=== PATIENT | male | born 1960 | race Caucasian/White ===

== ENCOUNTER 2017-04-14 12:57 | Emergency (ER) | payer BC ==
[2017-04-14 13:08] VITALS: BP 148/100
--- NOTE | 2017-04-14 14:27 | EDM.PDOC ---
ED HPI GENERAL MEDICAL PROBLEM - General Chief Complaint: Respiratory Problem Stated Complaint: TROUBLE BREATHING/ABDOMINAL PAIN Time Seen by Provider: 04/14/17 13:39 Source of Information: Reports: Patient, RN Notes Reviewed History Limitations: Reports: No Limitations - History of Present Illness INITIAL COMMENTS - FREE TEXT/NARRATIVE: 56-year-old male comes into the ER today complaining of trouble breathing and abdominal pain for the past 3 days. He states that he feels there is a pressure in his sinuses that "codey" his breathing. He does not have copious nasal rhinitis. NOt Much of any postnasal drip. He states the abdominal pain makes him feel "full" but admits he is able to eat and have normal BMs this morning. He denies any change in his diet. Patient states that the sinus pressure is also causing a headache but he denies any fever, chills, sick contacts, allergies, congestion, or cough. In regards to his abdominal pain he denies any nausea, vomiting, constipation, chest pain, but admits to diarrhea for the past 3 days and is unable to pass gas at this time. He denies any blood in his stools or urine. He states that he has only taken ibuprofen which has not alleviated the symptoms. He states that the ear is quite dry at his residence. 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 Liver he states that shop is ventilated and does not have concern for carbon monoxide exposure. Duration: Constant Location: Reports: Head (Headache), Abdomen, Other (Sinus) Quality: Reports: Pressure (Sinus) - Related Data Allergies Allergy/AdvReac Type Severity Reaction Status Date / Time No Known Allergies Allergy Verified 04/14/17 13:07 Home Meds: Home Meds Aspirin 81 mg PO DAILY 04/14/17 [History] Fish Oil/[place]-3 Fatty Acids [Fish Oil 1,000 MG] 1 each PO DAILY 04/14/17 [ History] Flaxseed Oil [Flaxseed] 1,000 mg PO DAILY 04/14/17 [History] Glimepiride [Glimepiride] 1 mg PO DAILY 04/14/17 [History] Losartan/Hydrochlorothiazide [Losartan-HCTZ 100-25 MG] 1 tab PO DAILY 04/14/17 [ History] Omeprazole 20 mg PO DAILY 04/14/17 [History] Pioglitazone HCl [Pioglitazone HCl] 45 mg PO DAILY 04/14/17 [History] Tamsulosin HCl [Tamsulosin HCl] 0.4 mg PO DAILY 04/14/17 [History] Ubidecarenone [Co Q-10] 1 cap PO DAILY 04/14/17 [History] Past Medical History Cardiovascular History: Reports: Hypertension Social & Family History - Tobacco Use Smoking Status *Q: Never Smoker Second Hand Smoke Exposure: No - Caffeine Use Caffeine Use: Reports: Coffee - Alcohol Use Days Per Week of Alcohol Use: 1 Number of Drinks Per Day: 4 Total Drinks Per Week: 4 - Recreational Drug Use Recreational Drug Use: No ED ROS GENERAL - Review of Systems Review Of Systems: See Below Constitutional: Reports: No Symptoms. Denies: Fever, Chills, Decreased Appetite HEENT: Reports: Sinus Problem (Feels some pressure of his nose and sinuses as though there is "blockage"). Denies: Throat Pain, Throat Swelling Respiratory: Reports: Shortness of Breath, Other (Difficult breathing through nose). Denies: Wheezing, Pleuritic Chest Pain, Cough, Sputum Cardiovascular: Reports: No Symptoms Endocrine: Reports: No Symptoms GI/Abdominal: Reports: Diarrhea (Comes and goes), Other (Feels "full", uncomfortable feeling in abdomen). Denies: Black Stool, Bloody Stool, Constipation, Decreased Appetite, Distension, Flatus, Nausea, Vomiting : Reports: No Symptoms. Denies: Dysuria, Hematuria, Pain Musculoskeletal: Reports: No Symptoms Skin: Reports: No Symptoms Neurological: Reports: Headache (Frontal) Psychiatric: Reports: No Symptoms Hematologic/Lymphatic: Reports: No Symptoms Immunologic: Reports: No Symptoms ED EXAM, GENERAL - Physical Exam Exam: See Below Exam Limited By: No Limitations General Appearance: Alert, WD/WN, Mild Distress Eye Exam: Bilateral Eye: Normal Inspection, PERRL Ears: Normal External Exam Nose: Normal Inspection, Normal Mucosa, No Blood. No: Nasal Tenderness, Nasal Deformity, Nasal Swelling, Nasal Drainage, Clear Rhinorrhea Throat/Mouth: Normal Inspection, Normal Lips, Normal Teeth, Normal Gums, Normal Oropharynx. No: Dysphagia, Inflammation Head: Atraumatic, Normocephalic. No: Sinus Tenderness Neck: Normal Inspection, Supple, Non-Tender, Full Range of Motion Respiratory/Chest: No Respiratory Distress, Lungs Clear, Normal Breath Sounds, Chest Non-Tender. No: Crackles, Rales, Rhonchi, Wheezing Cardiovascular: Normal Peripheral Pulses, Regular Rate, Rhythm, Tachycardia. No : No Murmur GI/Abdominal: Normal Bowel Sounds, Soft, Non-Tender, No Distention, No Mass. No : Distended, Guarding, Rebound Back Exam: Normal Inspection, Full Range of Motion Neurological: Alert, Oriented Psychiatric: Normal Affect, Normal Mood Skin Exam: Warm, Dry, Intact, Normal Color Lymphatic: No Adenopathy Course - Vital Signs Last Recorded V/S: Last Vital Signs Temp 96.8 F 04/14/17 13:05 Pulse 100 04/14/17 13:05 Resp 16 04/14/17 13:05 BP 148/100 H 04/14/17 13:05 Pulse Ox 95 04/14/17 13:05 Departure - Departure Time of Disposition: 14:24 Disposition: Home, Self-Care 01 Condition: Fair Clinical Impression: Viral syndrome - Discharge Information Instructions: Viral Respiratory Infection, [id number] Referrals: Kenneth Crews MD [Primary Care Provider] - Forms: ED Department Discharge Additional Instructions: Clear liquids and careful bland diet as tolerated, start probiotic 2-3 times daily to help get more of the good bacteria into your intestine and colon. Vaporizer or steam as needed, symptoms should gradually get better over the next few days, decongestant such as Sudafed 2-3 times daily as needed. Follow up clinic if symptoms worsening in any way return to ED as needed
== END 2017-04-14 14:40 | disposition home or self-care (01) ==
LOC: JD.ED 12:57
DX: B34.9 Viral infection, unspecified (principal); I10 Essential (primary) hypertension; Z79.899 Other long term (current) drug therapy; Z79.82 Long term (current) use of aspirin
CPT/HCPCS: 99282; 99284

== ENCOUNTER 2018-03-11 08:38 | Emergency (ER) | payer BC ==
[2018-03-11] MEDS ORDERED: Sodium Chloride 0.9% 10 ML Syringe FLUSH PRN ×2 (08:55→08:59)
[2018-03-11] MEDS ORDERED: HYDROmorphone 1 MG/ML Syringe IVPUSH ONE ×2 (08:56→09:51)
[2018-03-11] MEDS ORDERED: Iopamidol 612 MG/ML 100 ML Bottle IVPUSH ONE (08:59)
[2018-03-11] MEDS ORDERED: Sodium Chloride 0.9% 1,000 ML IV SCH (09:00)
[2018-03-11 10:08] VITALS: BP 126/80
--- NOTE | 2018-03-11 10:14 | CT ---
CT chest Technique: Multiple axial sections were obtained from above the lung apices inferiorly through the lung bases. Intravenous contrast was utilized. Comparison: No prior chest imaging. Findings: No pericardial thickening is seen. Mild coronary artery calcification is noted. Mediastinum and hilar regions show no adenopathy or mass. Lungs are clear. No acute parenchymal change is seen. No pleural effusions are noted. Incidental note of extrapleural fat posteriorly within the left lung base. Bone window settings were reviewed. Findings suspicious for nondisplaced fracture is noted on the sagittal images within the anterior left 10th rib. No additional rib fracture is appreciated. Mild degenerative spurring is scattered throughout the thoracic spine. Vertebral body heights are maintained. Sagittal images of the sternum appear to be intact. Impression: 1. Probable nondisplaced anterior rib fracture involving the 10th left rib. 2. No other acute abnormality is appreciated on CT study of the chest. Diagnostic code #3 CT abdomen and pelvis Technique: Multiple axial sections were obtained from above the dome of the diaphragm inferiorly through the pubic symphysis. Intravenous contrast was utilized. No oral contrast was given. Delayed images were obtained through the bladder. Findings: Liver shows no focal parenchymal abnormality. Gallbladder contains no calcified gallstones. Spleen appears within normal limits. Adrenal glands show no nodule. Kidneys show symmetric contrast enhancement without hydronephrosis or mass. Pancreas is within normal limits. Aorta shows no aneurysm. No retroperitoneal adenopathy or mesenteric abnormalities are seen. Appendix is seen which is normal. No pelvic mass or adenopathy is seen. No free fluid or inflammatory change is seen. Incidental sigmoid and descending colon diverticuli are seen. Delayed images show contrast within the distal ureters and bladder. Bone window settings were reviewed which show minimal scattered degenerative change within the spine. No acute osseous abnormality is seen. Impression: 1. Incidental findings. Nothing acute is seen on CT study of the abdomen and pelvis. Diagnostic code #2
--- NOTE | 2018-03-11 10:43 | EDM.PDOC ---
ED HPI GENERAL MEDICAL PROBLEM - General Chief Complaint: General Stated Complaint: FELL ON ICE RIB INJURY Time Seen by Provider: 03/11/18 08:45 Source of Information: Reports: Patient History Limitations: Reports: No Limitations - History of Present Illness INITIAL COMMENTS - FREE TEXT/NARRATIVE: The patient presents with left, lateral, lower chest pain and left upper abdominal pain. The patient was out ice fishing on Friday and his son slipped and fell and took out the patient's legs and fell on his left side on top of his son's legs. He had pain but he was doing okay for a couple days. Last night he moved in bed and felt more pain. He has no shortness of breath, fever, chills or cough. When he moves or takes a deep breath the pain is worse. He denies any other injuries. Onset: Sudden Duration: Day(s): (Friday) Location: Reports: Chest, Abdomen Quality: Reports: Sharp Severity: Moderate Improves with: Reports: Immobilization Worsens with: Reports: Breathing, Movement Context: Reports: Trauma (Fell on Friday) Associated Symptoms: Reports: Chest Pain. Denies: Cough, Fever/Chills, Headaches, Nausea/Vomiting Left Chest Pain Score (Numeric/FACES): 6 - Related Data Allergies Allergy/AdvReac Type Severity Reaction Status Date / Time No Known Allergies Allergy Verified 03/11/18 08:49 Home Meds: Home Meds Aspirin 81 mg PO DAILY 04/14/17 [History] Fish Oil/[place]-3 Fatty Acids [Fish Oil 1,000 MG] 1 each PO DAILY 04/14/17 [ History] Flaxseed Oil [Flaxseed] 1,000 mg PO DAILY 04/14/17 [History] Glimepiride 1 mg PO DAILY 04/14/17 [History] Losartan/Hydrochlorothiazide [Losartan-HCTZ 100-25 MG] 1 tab PO DAILY 04/14/17 [ History] Omeprazole 20 mg PO DAILY 04/14/17 [History] Pioglitazone HCl 45 mg PO DAILY 04/14/17 [History] Tamsulosin HCl 0.4 mg PO DAILY 04/14/17 [History] Ubidecarenone [Co Q-10] 1 cap PO DAILY 04/14/17 [History] Cyclobenzaprine [Flexeril] 10 mg PO Q8H PRN 03/11/18 [History] Ibuprofen 800 mg PO Q6H PRN 03/11/18 [History] Past Medical History HEENT History: Reports: Impaired Vision Other HEENT History: wears eyeglasses. Cardiovascular History: Reports: High Cholesterol, Hypertension Gastrointestinal History: Reports: GERD Genitourinary History: Reports: Retention, Urinary Endocrine/Metabolic History: Reports: Diabetes, Type II - Infectious Disease History Infectious Disease History: Reports: Chicken Pox Social & Family History - Tobacco Use Smoking Status *Q: Never Smoker Second Hand Smoke Exposure: No - Caffeine Use Caffeine Use: Reports: Coffee, Soda, Tea - Recreational Drug Use Recreational Drug Use: No ED ROS GENERAL - Review of Systems Review Of Systems: See Below Constitutional: Reports: No Symptoms HEENT: Reports: No Symptoms Respiratory: Reports: No Symptoms Cardiovascular: Reports: Chest Pain Endocrine: Reports: No Symptoms GI/Abdominal: Reports: Abdominal Pain. Denies: Diarrhea, Nausea, Vomiting ED EXAM, GENERAL - Physical Exam Exam: See Below Exam Limited By: No Limitations General Appearance: Alert, No Apparent Distress Ears: Normal External Exam Nose: Normal Inspection Head: Atraumatic, Normocephalic Neck: Normal Inspection Respiratory/Chest: No Respiratory Distress, Lungs Clear, Normal Breath Sounds, Other (Pain upon palpation to the left lateral lower chest) Cardiovascular: Regular Rate, Rhythm, No Edema, No Murmur GI/Abdominal: Soft, No Organomegaly, No Mass, Tender (Mild to moderate tenderness to the left upper quadrant to the left flank) Back Exam: Normal Inspection Extremities: Normal Inspection Neurological: Alert, Oriented, No Motor/Sensory Deficits Course - Vital Signs Last Recorded V/S: Last Vital Signs Temp 97.9 F 03/11/18 08:44 Pulse 100 03/11/18 09:50 Resp 16 03/11/18 09:50 BP 126/80 03/11/18 09:50 Pulse Ox 95 03/11/18 09:50 - Orders/Labs/Meds Orders: Active Orders 24 hr Category Date Time Status Cardiac Monitoring [RC] . DIRECTED Care 03/11/18 08:55 Active Peripheral IV Care [RC] . DIRECTED Care 03/11/18 08:56 Active Sodium Chloride 0.9% [Normal Saline] 1,000 ml Med 03/11/18 09:00 Active IV ASDIRECTED Sodium Chloride 0.9% [Saline Flush] Med 03/11/18 08:55 Active 10 ml FLUSH ASDIRECTED PRN Sodium Chloride 0.9% [Saline Flush] Med 03/11/18 08:59 Active 10 ml FLUSH ONETIME PRN Peripheral IV Insertion Adult [OM.PC] Stat Oth 03/11/18 08:55 Ordered Medication Orders Sodium Chloride (Normal Saline) 1,000 mls @ 125 mls/hr IV ASDIRECTED NERISSA Last Admin: 03/11/18 09:06 Dose: 125 mls/hr Sodium Chloride (Saline Flush) 10 ml FLUSH ASDIRECTED PRN PRN Reason: Keep Vein Open Last Admin: 03/11/18 09:40 Dose: 10 ml Sodium Chloride (Saline Flush) 10 ml FLUSH ONETIME PRN PRN Reason: IV FLUSH Last Admin: 03/11/18 09:00 Dose: 10 ml Labs: Laboratory Tests 03/11/18 03/11/18 Range/Units 09:00 09:00 WBC 8.66 (4.23-9.07) K/mm3 RBC 5.41 (4.63-6.08) M/mm3 Hgb 15.0 (13.7-17.5) gm/L Hct 45.8 (40.1-51.0) % MCV 84.7 (79.0-92.2) fl MCH 27.7 (25.7-32.2) pg MCHC 32.8 (32.2-35.5) g/dl RDW Std Deviation 41.4 (35.1-43.9) fL Plt Count 253 (163-337) K/mm3 MPV 10.3 (9.4-12.3) fl Neut % (Auto) 65.1 (34.0-67.9) % Lymph % (Auto) 23.9 (21.8-53.1) % [place] % (Auto) 8.3 (5.3-12.2) % Eos % (Auto) 2.2 (0.8-7.0) Baso % (Auto) 0.2 (0.1-1.2) % Neut # (Auto) 5.63 H (1.78-5.38) K/mm3 Lymph # (Auto) 2.07 (1.32-3.57) K/mm3 [place] # (Auto) 0.72 (0.30-0.82) K/mm3 Eos # (Auto) 0.19 (0.04-0.54) K/mm3 Baso # (Auto) 0.02 (0.01-0.08) K/mm3 Sodium 137 (136-145) mEq/L Potassium 4.0 (3.5-5.1) mEq/L Chloride 100 (98-107) mEq/L Carbon Dioxide 28 (21-32) mEq/L Anion Gap 13.0 (5-15) BUN 17 (7-18) mg/dL Creatinine 0.9 (0.7-1.3) mg/dL Est Cr Clr Drug Dosing 78.77 mL/min Estimated GFR (MDRD) > 60 (>60) mL/min BUN/Creatinine Ratio 18.9 H (14-18) Glucose 295 H (74-106) mg/dL Calcium 9.1 (8.5-10.1) mg/dL Total Bilirubin 0.8 (0.2-1.0) mg/dL AST 33 (15-37) U/L ALT 53 (16-63) U/L Alkaline Phosphatase 73 (46-116) U/L Total Protein 7.5 (6.4-8.2) g/dl Albumin 3.4 (3.4-5.0) g/dl Globulin 4.1 gm/dL Albumin/Globulin Ratio 0.8 L (1-2) Lipase 161 (73-393) U/L Meds: Medications Generic Name Dose Route Start Last Admin Trade Name Freq PRN Reason Stop Dose Admin Sodium Chloride 1,000 mls @ 125 mls/hr 03/11/18 09:00 03/11/18 09:06 Normal Saline IV 125 mls/hr ASDIRECTED NERISSA Administration Sodium Chloride 10 ml 03/11/18 08:55 03/11/18 09:40 Saline Flush FLUSH 10 ml ASDIRECTED PRN Administration Keep Vein Open Sodium Chloride 10 ml 03/11/18 08:59 03/11/18 09:00 Saline Flush FLUSH 10 ml ONETIME PRN Administration IV FLUSH Discontinued Medications Generic Name Dose Route Start Last Admin Trade Name Freq PRN Reason Stop Dose Admin Hydromorphone HCl 0.5 mg 03/11/18 08:56 03/11/18 09:07 Dilaudid IVPUSH 03/11/18 08:57 0.5 mg ONETIME ONE Administration Hydromorphone HCl 0.5 mg 03/11/18 09:51 03/11/18 10:00 Dilaudid IVPUSH 03/11/18 09:52 0.5 mg ONETIME ONE Administration Iopamidol 100 ml 03/11/18 08:59 03/11/18 09:40 Isovue-300 (61%) IVPUSH 03/11/18 09:00 100 ml ONETIME ONE Administration - Re-Assessments/Exams Free Text/Narrative Re-Assessment/Exam: 03/11/18 10:45 I ordered an IV saline lock, dilaudid, labs and a CT of his chest, abdomen and pelvis. His CBC looks good. His blood sugar was elevated at 295. His lipase was normal. His CT shows probable nondisplaced anterior rib fracture involving the 10th left rib. No other acute abnormality is appreciated. The CT of his abdomen and pelvis shows incidental findings and nothing acute. He had more pain so I ordered some dilaudid. I will give him an incentive spyrometer and something for pain. Departure - Departure Time of Disposition: 10:55 Disposition: Home, Self-Care 01 Condition: Good Clinical Impression: Fall Qualifiers: Encounter type: initial encounter Qualified Code(s): W19.XXXA - Unspecified fall, initial encounter Rib fracture Qualifiers: Encounter type: initial encounter Rib fracture type: single rib Fracture type: closed Laterality: left Qualified Code(s): S22.32XA - Fracture of one rib, left side, initial encounter for closed fracture - Discharge Information *PRESCRIPTION DRUG MONITORING PROGRAM REVIEWED*: No *COPY OF PRESCRIPTION DRUG MONITORING REPORT IN PATIENT NEVAEH: No Referrals: Kenneth Crews MD [Primary Care Provider] - 1 Week Additional Instructions: Do 10 breaths every 4 hours while awake for 5 days. Take the hydrocodone as needed for pain. Please return if you are worse such as more pain, shortness fo breath, cough or fever. The worry is you may get pneumonia if you do not take deep breaths. - My Orders Last 24 Hours: My Active Orders 03/11/18 08:55 Cardiac Monitoring [RC] . DIRECTED Sodium Chloride 0.9% [Saline Flush] 10 ml FLUSH ASDIRECTED PRN Peripheral IV Insertion Adult [OM.PC] Stat 03/11/18 08:56 Peripheral IV Care [RC] . DIRECTED 03/11/18 08:59 Sodium Chloride 0.9% [Saline Flush] 10 ml FLUSH ONETIME PRN 03/11/18 09:00 Sodium Chloride 0.9% [Normal Saline] 1,000 ml IV ASDIRECTED - Assessment/Plan Last 24 Hours: My Active Orders 03/11/18 08:55 Cardiac Monitoring [RC] . DIRECTED Sodium Chloride 0.9% [Saline Flush] 10 ml FLUSH ASDIRECTED PRN Peripheral IV Insertion Adult [OM.PC] Stat 03/11/18 08:56 Peripheral IV Care [RC] . DIRECTED 03/11/18 08:59 Sodium Chloride 0.9% [Saline Flush] 10 ml FLUSH ONETIME PRN 03/11/18 09:00 Sodium Chloride 0.9% [Normal Saline] 1,000 ml IV ASDIRECTED
== END 2018-03-11 11:18 | disposition home or self-care (01) ==
LOC: JD.ED 08:38
DX: S22.32XA Fracture of one rib, left side, initial encounter for closed fracture (principal); E78.00 Pure hypercholesterolemia, unspecified; I10 Essential (primary) hypertension; E11.9 Type 2 diabetes mellitus without complications; Z79.82 Long term (current) use of aspirin; Z79.899 Other long term (current) drug therapy; Z79.84 Long term (current) use of oral hypoglycemic drugs; W51.XXXA Accidental striking against or bumped into by another person, initial encounter; Y92.89 Other specified places as the place of occurrence of the external cause; Y93.89 Activity, other specified
CPT/HCPCS: 36415; 71260; 74177; 80053; 83690; 85025; 96361; 96374; 96376; 99284; J1170; J7040; Q9967

== ENCOUNTER 2020-12-02 12:10 | Inpatient (IN) | payer BC ==
--- NOTE | 2020-12-02 12:58 | EDM.PDOC ---
ED HPI GENERAL MEDICAL PROBLEM - General Chief Complaint: Respiratory Problem Stated Complaint: COVID+ SOB Time Seen by Provider: 12/02/20 12:31 Source of Information: Reports: Patient History Limitations: Reports: No Limitations - History of Present Illness INITIAL COMMENTS - FREE TEXT/NARRATIVE: 59-year-old male presents the emergency department with complaints of increased shortness of breath and worsening Covid symptoms. Patient states that he developed Covid type symptoms 8 days ago. He states that 3 days ago he was seen at the walk-in clinic and tested for Covid and tested positive. He states that initially he had a paroxysmal persistent cough however he states that cough has subsided somewhat. Chief complaint is increased shortness of breath with any and all activity. He also complains of fatigue, decreased appetite, nausea and diarrhea. He denies any recent fever or chills. Patient is not a smoker. He does admit to a history of hypertension, high cholesterol and type 2 diabetes. He also has a BMI of 53.3. Patient did have O2 saturations at home in the 80s. Nursing staff notifies me that patient ambulated back to his room and initially his O2 saturations were 84%. Once he was in his bed and resting O2 saturations only came up to 88%. Nursing staff applied oxygen at 2 L per nasal cannula and O2 saturations are 98%. - Related Data Allergies Allergy/AdvReac Type Severity Reaction Status Date / Time No Known Allergies Allergy Verified 12/02/20 16:05 Home Meds: Home Meds Aspirin 81 mg PO DAILY 04/14/17 [History] Fish Oil/[place]-3 Fatty Acids [Fish Oil 1,000 MG] 1 each PO DAILY 04/14/17 [History] Flaxseed Oil [Flaxseed] 1,000 mg PO DAILY 04/14/17 [History] Glimepiride 1 mg PO DAILY 04/14/17 [History] Losartan/Hydrochlorothiazide [Losartan-HCTZ 100-25 MG] 25 - 100 mg PO DAILY 04/14/17 [History] Omeprazole 20 mg PO DAILY 04/14/17 [History] Pioglitazone HCl 45 mg PO DAILY 04/14/17 [History] Tamsulosin HCl 0.4 mg PO DAILY 04/14/17 [History] Ubidecarenone [Co Q-10] 400 mg PO DAILY 04/14/17 [History] Ibuprofen 800 mg PO Q6H PRN 03/11/18 [History] Past Medical History HEENT History: Reports: Impaired Vision Other HEENT History: wears eyeglasses. Cardiovascular History: Reports: High Cholesterol, Hypertension Gastrointestinal History: Reports: GERD Genitourinary History: Reports: Retention, Urinary Endocrine/Metabolic History: Reports: Diabetes, Type II - Infectious Disease History Infectious Disease History: Reports: Chicken Pox Social & Family History - Tobacco Use Tobacco Use Status *Q: Never Tobacco User - Caffeine Use Caffeine Use: Reports: Coffee, Soda, Tea ED ROS GENERAL - Review of Systems Review Of Systems: Comprehensive ROS is negative, except as noted in HPI. ED EXAM, GENERAL - Physical Exam Exam: See Below Exam Limited By: No Limitations General Appearance: Alert, WD/WN, Mild Distress Ears: Normal External Exam, Hearing Grossly Normal Nose: Normal Inspection Throat/Mouth: Normal Inspection, Normal Lips, Normal Voice, No Airway Compromise Head: Atraumatic Neck: Normal Inspection, Supple Respiratory/Chest: No Respiratory Distress, Lungs Clear, No Accessory Muscle Use, Chest Non-Tender, Decreased Breath Sounds Cardiovascular: Normal Peripheral Pulses, Regular Rate, Rhythm, No Edema, No Murmur Peripheral Pulses: 2+: Radial (L), Radial (R) GI/Abdominal: Normal Bowel Sounds, Soft, Non-Tender, No Distention (Male) Exam: Deferred Rectal (Males) Exam: Deferred Back Exam: Normal Inspection Extremities: Normal Inspection Neurological: Alert, Oriented, Normal Cognition Psychiatric: Normal Affect, Normal Mood Skin Exam: Warm, Dry, Intact, Normal Color, No Rash Lymphatic: No Adenopathy #1 Interpretation EKG Date: 12/02/20 Time: 13:22 Rhythm: NSR Rate (Beats/Min): 101 Mccl[place]: Normal P-Wave: Present QRS: Normal ST-T: Normal QT: Normal Comparison: NA - No Prior EKG EKG Interpretation Comments: Per Dr. Sim interpretation: Sinus tachycardia at a rate of 101; right bundle branch block Course - Vital Signs Text/Narrative:: As stated above, patient presents with a day history of Covid. The time of my exam, the patient is resting in bed and is not dyspneic at rest. He is requiring 2 L of oxygen as stated above to maintain saturations above 90%. Physical exam is essentially unremarkable. Lung sounds are diminished. I have ordered lab studies to include CBC, CMP, magnesium, C-reactive protein and a D- dimer. We will also obtain an EKG and a portable chest x-ray. Last Recorded V/S: Last Vital Signs Temp 98.5 F 12/02/20 12:31 Pulse 100 12/02/20 12:31 Resp 18 12/02/20 12:31 BP 129/87 12/02/20 12:31 Pulse Ox 88 L 12/02/20 12:31 - Orders/Labs/Meds Orders: Active Orders 24 hr Category Date Time Status Admission Status [Patient Status] [ADT] Routine ADT 12/02/20 14:43 Active Chest 1V Frontal [CR] Stat Exams 12/02/20 12:53 Taken Labs: Laboratory Tests 12/02/20 12/02/20 12/02/20 Range/Units 13:49 13:49 13:49 WBC 6.30 (4.23-9.07) K/mm3 RBC 4.89 (4.63-6.08) M/mm3 Hgb 13.8 (13.7-17.5) gm/dl Hct 42.9 (40.1-51.0) % MCV 87.7 D (79.0-92.2) fl MCH 28.2 (25.7-32.2) pg MCHC 32.2 (32.2-35.5) g/dl RDW Std Deviation 43.8 (35.1-43.9) fL Plt Count 195 (163-337) K/mm3 MPV 9.9 (9.4-12.3) fl Neut % (Auto) 73.7 H (34.0-67.9) % Lymph % (Auto) 20.2 L (21.8-53.1) % Curry % (Auto) 5.6 (5.3-12.2) % Eos % (Auto) 0 L (0.8-7.0) Baso % (Auto) 0.2 (0.1-1.2) % Neut # (Auto) 4.65 (1.78-5.38) K/mm3 Lymph # (Auto) 1.27 L (1.32-3.57) K/mm3 Curry # (Auto) 0.35 (0.30-0.82) K/mm3 Eos # (Auto) 0.00 L (0.04-0.54) K/mm3 Baso # (Auto) 0.01 (0.01-0.08) K/mm3 D-Dimer, Quantitative 0.46 (0.19-0.50) mg/L Sodium 137 (136-145) mEq/L Potassium 3.2 L (3.5-5.1) mEq/L Chloride 101 (98-107) mEq/L Carbon Dioxide 29 (21-32) mEq/L Anion Gap 10.2 (5-15) BUN 13 (7-18) mg/dL Creatinine 1.0 (0.7-1.3) mg/dL Est Cr Clr Drug Dosing 69.19 mL/min Estimated GFR (MDRD) > 60 (>60) mL/min BUN/Creatinine Ratio 13.0 L (14-18) Glucose 223 H (70-99) mg/dL Calcium 8.2 L (8.5-10.1) mg/dL Magnesium 1.7 L (1.8-2.4) mg/dL Total Bilirubin 0.5 (0.2-1.0) mg/dL AST 56 H (15-37) U/L ALT 50 (16-63) U/L Alkaline Phosphatase 53 (46-116) U/L C-Reactive Protein 7.9 H* (<1.0) mg/dL Total Protein 7.1 (6.4-8.2) g/dl Albumin 2.9 L (3.4-5.0) g/dl Globulin 4.2 gm/dL Albumin/Globulin Ratio 0.7 L (1-2) Meds: Medications Discontinued Medications Generic Name Dose Route Start Last Admin Trade Name Freq PRN Reason Stop Dose Admin Dexamethasone 6 mg 12/02/20 14:30 12/02/20 14:49 Dexamethasone 4 Mg Tab PO 12/02/20 14:31 6 mg ONETIME ONE Administration Magnesium Oxide 400 mg 12/02/20 14:17 12/02/20 14:49 Magnesium Oxide 400 Mg Tab PO 12/02/20 14:18 400 mg ONETIME ONE Administration Potassium Chloride 40 meq 12/02/20 14:16 12/02/20 14:48 Potassium Chloride 20 Meq Tab.Er PO 12/02/20 14:17 40 meq ONETIME ONE Administration - Re-Assessments/Exams Free Text/Narrative Re-Assessment/Exam: 12/02/20 14:08 Portable chest x-ray reveals scattered areas of infiltrate consistent with Covid pneumonia. 12/02/20 14:42 Hematology is essentially unremarkable, Coagulation reveals a D-dimer of 0.46 Chemistry reveals a sodium of 137, potassium 3.2, chloride 101, anion gap 10.2, BUN 13, creatinine 1.0, glucose 223, magnesium 1.7, AST 56, ALT 50, C-reactive protein 7.9 The patient does meet inpatient criteria for hospitalization. Nursing staff notifies me that we do have a bed available. I did speak with Dr. Segura, the hospitalist on-call and he has agreed to accept him as an inpatient on the medical floor. I did discuss with this patient and he is agreeable to this plan. Departure - Departure Time of Disposition: 16:23 Disposition: Admitted As Inpatient 66 Condition: Good Clinical Impression: Pneumonia due to COVID-19 virus, Hypoxemia, Hypokalemia due to excessive gastrointestinal loss of potassium, Hypomagnesemia - Discharge Information Sepsis Event Note (ED) - Evaluation Sepsis Screening Result: No Definite Risk - Focused Exam Vital Signs: Vital Signs Temp Pulse Resp BP Pulse Ox 12/02/20 12:31 98.5 F 100 18 129/87 88 L - My Orders Last 24 Hours: My Active Orders 12/02/20 12:53 Chest 1V Frontal [CR] Stat 12/02/20 14:43 Admission Status [Patient Status] [ADT] Routine - Assessment/Plan Last 24 Hours: My Active Orders 12/02/20 12:53 Chest 1V Frontal [CR] Stat 12/02/20 14:43 Admission Status [Patient Status] [ADT] Routine
[2020-12-02] MEDS ORDERED: Potassium Chloride 20 MEQ Tab.ER PO ONE (14:16)
[2020-12-02] MEDS ORDERED: Magnesium Oxide 400 MG Tab PO ONE (14:17)
[2020-12-02] MEDS ORDERED: Dexamethasone 4 MG Tab PO ONE (14:30)
--- NOTE | 2020-12-02 16:42 | CR ---
Chest: Frontal view of the chest was obtained. Comparison: No prior chest x-ray, prior chest CT study of 03/11/18. Heart size is enlarged. Upper mediastinum is within normal limits. Patchy areas of increased density are seen on both sides of the chest. Bony structure shows nothing acute. Impression: 1. Findings very suspicious for moderately severe COVID pneumonia. 2. Mild cardiomegaly. Diagnostic code #3
--- NOTE | 2020-12-02 16:55 | PCM.HP.2 ---
H&P History of Present Illness - General Date of Service: 12/02/20 Admit Problem/Dx: Admission Diagnosis/Problem Admission Diagnosis/Problem Hypoxia - History of Present Illness Initial Comments - Free Text/Narative: 59-year-old diabetic male, unvaccinated against COVID-19, presents to the emergency department with increasing shortness of breath and cough. Patient states that approximately 8 days prior he developed feeling short of breath and fatigue. Patient was diagnosed with COVID-19 3 days prior to admission at the walk-in clinic. Patient states that his shortness of breath has worsened and his home oxygen saturations were in the 80s. Cough has actually improved from earlier. He does state he has had a change in taste, increased fatigue, decreased appetite, and some episodes of diarrhea which he contributes to cough medicine. Denies any fever or chills. In the emergent department patient was placed on 2 L nasal cannula with saturations increased to the mid to upper 90s. - Related Data Allergies/Adverse Reactions: Allergies Allergy/AdvReac Type Severity Reaction Status Date / Time No Known Allergies Allergy Verified 12/02/20 16:05 Home Medications: Home Meds Aspirin 81 mg PO DAILY 04/14/17 [History] Fish Oil/[place]-3 Fatty Acids [Fish Oil 1,000 MG] 1 each PO DAILY 04/14/17 [History] Flaxseed Oil [Flaxseed] 1,000 mg PO DAILY 04/14/17 [History] Glimepiride 1 mg PO DAILY 04/14/17 [History] Losartan/Hydrochlorothiazide [Losartan-HCTZ 100-25 MG] 25 - 100 mg PO DAILY 04/14/17 [History] Omeprazole 20 mg PO DAILY 04/14/17 [History] Pioglitazone HCl 45 mg PO DAILY 04/14/17 [History] Tamsulosin HCl 0.4 mg PO DAILY 04/14/17 [History] Ubidecarenone [Co Q-10] 400 mg PO DAILY 04/14/17 [History] Ibuprofen 800 mg PO Q6H PRN 03/11/18 [History] Past Medical History HEENT History: Reports: Impaired Vision Other HEENT History: wears eyeglasses. Cardiovascular History: Reports: High Cholesterol, Hypertension Gastrointestinal History: Reports: GERD Genitourinary History: Reports: Retention, Urinary Endocrine/Metabolic History: Reports: Diabetes, Type II - Infectious Disease History Infectious Disease History: Reports: Chicken Pox Social & Family History - Tobacco Use Tobacco Use Status *Q: Never Tobacco User - Caffeine Use Caffeine Use: Reports: Coffee Other Caffeine Use: occassional - Alcohol Use Days Per Week of Alcohol Use: 1 Number of Drinks Per Day: 4 Total Drinks Per Week: 4 Date of Last Drink: 11/25/20 - Recreational Drug Use Recreational Drug Use: No H&P Review of Systems - Review of Systems: Review Of Systems: Comprehensive ROS is negative, except as noted in HPI. Exam - Exam Exam: See Below - Vital Signs Vital Signs: Last Vital Signs Temp 97.3 F 12/02/20 16:20 Pulse 104 H 12/02/20 16:20 Resp 20 12/02/20 16:20 BP 130/81 12/02/20 16:20 Pulse Ox 93 L 12/02/20 16:45 Weight: 314 lb 11.2 oz - Exam Quality Assessment: Supplemental Oxygen General: Alert, Oriented, 4 HEENT: Conjunctiva Clear, Mucosa Moist & [place] Neck: Supple, Trachea Midline, 2 Lungs: Crackles (Bibasilar). No: Clear to Auscultation, Normal Respiratory Effort (Mildly increased rate and effort) Cardiovascular: Regular Rate, Regular Rhythm, Normal S1, Normal S2 GI/Abdominal Exam: Normal Bowel Sounds, Soft, Non-Tender, No Distention (Morbidly obese) Extremities: Normal Inspection, Non-Tender, No Pedal Edema, Normal Capillary Refill Skin: Warm, Dry, Intact Neurological: Cranial Nerves Intact Neuro Extensive - Mental Status: Alert, Oriented x3, Normal Mood/Affect, Normal Cognition, Memory Intact Neuro Extensive - Motor, Sensory, Reflexes: CN II-XII Intact Psychiatric: Alert, Normal Affect, Normal Mood - Patient Data Lab Results Last 24 hrs: Laboratory Results - last 24 hr 12/02/20 12/02/20 12/02/20 Range/Units 13:49 13:49 13:49 WBC 6.30 (4.23-9.07) K/mm3 RBC 4.89 (4.63-6.08) M/mm3 Hgb 13.8 (13.7-17.5) gm/dl Hct 42.9 (40.1-51.0) % MCV 87.7 D (79.0-92.2) fl MCH 28.2 (25.7-32.2) pg MCHC 32.2 (32.2-35.5) g/dl RDW Std Deviation 43.8 (35.1-43.9) fL Plt Count 195 (163-337) K/mm3 MPV 9.9 (9.4-12.3) fl Neut % (Auto) 73.7 H (34.0-67.9) % Lymph % (Auto) 20.2 L (21.8-53.1) % Leon % (Auto) 5.6 (5.3-12.2) % Eos % (Auto) 0 L (0.8-7.0) Baso % (Auto) 0.2 (0.1-1.2) % Neut # (Auto) 4.65 (1.78-5.38) K/mm3 Lymph # (Auto) 1.27 L (1.32-3.57) K/mm3 Leon # (Auto) 0.35 (0.30-0.82) K/mm3 Eos # (Auto) 0.00 L (0.04-0.54) K/mm3 Baso # (Auto) 0.01 (0.01-0.08) K/mm3 D-Dimer, Quantitative 0.46 (0.19-0.50) mg/L Sodium 137 (136-145) mEq/L Potassium 3.2 L (3.5-5.1) mEq/L Chloride 101 (98-107) mEq/L Carbon Dioxide 29 (21-32) mEq/L Anion Gap 10.2 (5-15) BUN 13 (7-18) mg/dL Creatinine 1.0 (0.7-1.3) mg/dL Est Cr Clr Drug Dosing 69.19 mL/min Estimated GFR (MDRD) > 60 (>60) mL/min BUN/Creatinine Ratio 13.0 L (14-18) Glucose 223 H (70-99) mg/dL Calcium 8.2 L (8.5-10.1) mg/dL Magnesium 1.7 L (1.8-2.4) mg/dL Total Bilirubin 0.5 (0.2-1.0) mg/dL AST 56 H (15-37) U/L ALT 50 (16-63) U/L Alkaline Phosphatase 53 (46-116) U/L C-Reactive Protein 7.9 H* (<1.0) mg/dL Total Protein 7.1 (6.4-8.2) g/dl Albumin 2.9 L (3.4-5.0) g/dl Globulin 4.2 gm/dL Albumin/Globulin Ratio 0.7 L (1-2) Result Diagrams: 12/03/20 07:03 12/03/20 07:03 Sepsis Event Note - Evaluation Sepsis Screening Result: No Definite Risk - Focused Exam Vital Signs: Vital Signs Temp Pulse Resp BP Pulse Ox 12/02/20 16:45 93 L 12/02/20 16:20 97.3 F 104 H 20 130/81 97 12/02/20 12:31 98.5 F 100 18 129/87 88 L - Problem List (1) Type 2 diabetes mellitus SNOMED Code(s): 93353415 ICD Code: E11.9 - TYPE 2 DIABETES MELLITUS WITHOUT COMPLICATIONS Status: Acute Current Visit: Yes (2) Hypoxemia SNOMED Code(s): 954271536 ICD Code: R09.02 - HYPOXEMIA Status: Acute Current Visit: Yes (3) Pneumonia due to COVID-19 virus SNOMED Code(s): 419021737737763999 ICD Code: U07.1 - COVID-19; J12.82 - PNEUMONIA DUE TO CORONAVIRUS DISEASE 2019 Status: Acute Current Visit: Yes Problem List Initiated/Reviewed/Updated: Yes Orders Last 24hrs: Active Orders 24 hr Category Date Time Status Admission Status [Patient Status] [ADT] Routine ADT 12/02/20 14:43 Active Oxygen Therapy, ED [RC] ASDIRECTED Care 12/02/20 12:35 Active Assessment/Plan Comment:: 59-year-old diabetic male, unvaccinated against COVID-19, presents with Covid- like symptoms for 8 days. Covid pneumonia with hypoxemia * On 2 L nasal cannula from the ER * Symptoms of 8 days with worsening shortness of breath and saturations in the 80s at home * Several days of diarrhea * Morbid obesity, BMI 52, putting had much higher risk for complications * CRP 7.9, albumin 2.9, WBC 6.3, D-dimer 0.46 * Chest x-ray suspicious for moderately severe COVID pneumonia. Mild cardiomegaly * Given dexamethasone in the emergency department Type 2 diabetes mellitus * Unknown hemoglobin A1c at this time * Presenting blood sugar 223 * Home meds include pioglitazone and glimepiride Hypokalemia/hypomagnesemia * Initial potassium 3.2 * Magnesium 1.7 * Likely secondary to GI loss Hypertension * Blood pressures well controlled on home medications of losartan and hydrochlorothiazide Plan * Admit to medical floor in strict isolation * FiO2 to keep SPO2 between 88 and 94% * RT, I-S, prone positioning and routine COVID-19 pneumonia respiratory care * Start remdesivir * Continue dexamethasone * Follow CBC, CMP, mag, Phos, CRP, and occasional D-dimer * Lovenox 40 mg subcu daily for VTE prophylaxis. * Start with sliding scale insulin and add long-acting based on glycohemoglobin and bedside blood sugar monitoring. * Patient was given potassium 40 mEq in the emergency department. Follow as needed. * Continue losartan 100 mg daily, but hold hydrochlorothiazide at this time and monitor blood pressure * Albuterol and duo nebs as needed as part of standard Covid treatment * Magnesium oxide 400 mg twice daily. He was given a one-time dose of 100 mg in the emergency department. Continue to monitor. * CODE STATUS full code - Mortality Measure Prognosis:: Good
[2020-12-02] MEDS ORDERED: Ondansetron 4 MG/2 ML SDV IV PRN (17:29)
[2020-12-02] MEDS ORDERED: Ibuprofen 600 MG Tab PO PRN (17:29)
[2020-12-02] MEDS ORDERED: Temazepam 15 MG Cap PO PRN (17:29)
[2020-12-02] MEDS ORDERED: Acetaminophen 325 MG Tab PO PRN (17:29)
[2020-12-02] MEDS ORDERED: Albuterol/Ipratropium 3.0-0.5 MG/3 ML Neb Soln NEB PRN (17:36)
[2020-12-02] MEDS ORDERED: Albuterol 6.7 GM Inhaler INH PRN (17:36)
[2020-12-02] MEDS ORDERED: REMDESIVIR 200 MG in Sodium Chloride 0.9% 250 ML IV ONE (18:00)
[2020-12-02] MEDS: Magnesium Oxide 400 MG Tab PO SCH (21:27)
[2020-12-02] MEDS: Insulin Lispro 100 UNIT/ML 10 ML Vial SUBCUT SCH (21:33)
[2020-12-03] MEDS: Pantoprazole 40 MG Tab.CR PO SCH (06:13)
[2020-12-03] MEDS: Tamsulosin 0.4 MG Cap.ER PO SCH (08:25)
[2020-12-03] MEDS: Aspirin 81 MG Tab.EC PO SCH (08:25)
[2020-12-03] MEDS: Losartan 100 MG Tab PO SCH (08:25)
[2020-12-03] MEDS: Magnesium Oxide 400 MG Tab PO SCH ×2 (08:25→21:04)
[2020-12-03] MEDS: Dexamethasone 4 MG Tab PO SCH (08:25)
[2020-12-03] MEDS: Enoxaparin 40 MG/0.4 ML Syringe SUBCUT SCH (08:26)
[2020-12-03] MEDS: Insulin Lispro 100 UNIT/ML 10 ML Vial SUBCUT SCH ×5 (08:26→22:29)
[2020-12-03 11:08] LABS: HEMOGLOBIN A1C 9.9 %
[2020-12-03] MEDS: Insulin Glarg,Human.Rec.Analog 100 Unit/ML SUBCUT SCH (11:24)
--- NOTE | 2020-12-03 13:01 | PCM.PN ---
- General Info Date of Service: 12/03/20 Admission Dx/Problem (Free Text): Admission Diagnosis/Problem Admission Diagnosis/Problem Hypoxia Subjective Update: 59-year-old unvaccinated male with Covid 19 pneumonia. He states he feels like he is feeling slightly better. He is down to 1 L nasal cannula. He received remdesivir and dexamethasone yesterday. Appetite is good. Functional Status: Reports: Pain Controlled - Review of Systems General: Reports: Fatigue HEENT: Reports: No Symptoms Pulmonary: Reports: Shortness of Breath, Cough Cardiovascular: Reports: No Symptoms Gastrointestinal: Reports: No Symptoms Musculoskeletal: Reports: No Symptoms - Patient Data Vitals - Most Recent: Last Vital Signs Temp 98.2 F 12/03/20 11:22 Pulse 92 12/03/20 11:22 Resp 16 12/03/20 11:22 BP 120/64 12/03/20 11:22 Pulse Ox 92 L 12/03/20 09:24 Weight - Most Recent: 312 lb 3.2 oz I&O - Last 24 Hours: Intake & Output 12/02/20 12/03/20 12/03/20 22:59 06:59 14:59 Intake Total 200 1600 Output Total 1200 Balance 200 400 Lab Results Last 24 Hours: Laboratory Results - last 24 hr 12/02/20 12/02/20 12/02/20 Range/Units 13:49 13:49 13:49 WBC 6.30 (4.23-9.07) K/mm3 RBC 4.89 (4.63-6.08) M/mm3 Hgb 13.8 (13.7-17.5) gm/dl Hct 42.9 (40.1-51.0) % MCV 87.7 D (79.0-92.2) fl MCH 28.2 (25.7-32.2) pg MCHC 32.2 (32.2-35.5) g/dl RDW Std Deviation 43.8 (35.1-43.9) fL Plt Count 195 (163-337) K/mm3 MPV 9.9 (9.4-12.3) fl Neut % (Auto) 73.7 H (34.0-67.9) % Lymph % (Auto) 20.2 L (21.8-53.1) % [place] % (Auto) 5.6 (5.3-12.2) % Eos % (Auto) 0 L (0.8-7.0) Baso % (Auto) 0.2 (0.1-1.2) % Neut # (Auto) 4.65 (1.78-5.38) K/mm3 Lymph # (Auto) 1.27 L (1.32-3.57) K/mm3 [place] # (Auto) 0.35 (0.30-0.82) K/mm3 Eos # (Auto) 0.00 L (0.04-0.54) K/mm3 Baso # (Auto) 0.01 (0.01-0.08) K/mm3 Manual Slide Review D-Dimer, Quantitative 0.46 (0.19-0.50) mg/L Sodium 137 (136-145) mEq/L Potassium 3.2 L (3.5-5.1) mEq/L Chloride 101 (98-107) mEq/L Carbon Dioxide 29 (21-32) mEq/L Anion Gap 10.2 (5-15) BUN 13 (7-18) mg/dL Creatinine 1.0 (0.7-1.3) mg/dL Est Cr Clr Drug Dosing 69.19 mL/min Estimated GFR (MDRD) > 60 (>60) mL/min BUN/Creatinine Ratio 13.0 L (14-18) Glucose 223 H (70-99) mg/dL POC Glucose (70-99) mg/dL Hemoglobin A1c ( - 5.6) % Calcium 8.2 L (8.5-10.1) mg/dL Phosphorus (2.6-4.7) mg/dL Magnesium 1.7 L (1.8-2.4) mg/dL Total Bilirubin 0.5 (0.2-1.0) mg/dL AST 56 H (15-37) U/L ALT 50 (16-63) U/L Alkaline Phosphatase 53 (46-116) U/L C-Reactive Protein 7.9 H* (<1.0) mg/dL Total Protein 7.1 (6.4-8.2) g/dl Albumin 2.9 L (3.4-5.0) g/dl Globulin 4.2 gm/dL Albumin/Globulin Ratio 0.7 L (1-2) 12/02/20 12/03/20 12/03/20 Range/Units 21:25 06:11 07:03 WBC 5.02 (4.23-9.07) K/mm3 RBC 4.83 (4.63-6.08) M/mm3 Hgb 13.4 L (13.7-17.5) gm/dl Hct 42.0 (40.1-51.0) % MCV 87.0 (79.0-92.2) fl MCH 27.7 (25.7-32.2) pg MCHC 31.9 L (32.2-35.5) g/dl RDW Std Deviation 43.0 (35.1-43.9) fL Plt Count 216 (163-337) K/mm3 MPV 10.1 (9.4-12.3) fl Neut % (Auto) 71.3 H (34.0-67.9) % Lymph % (Auto) 19.5 L (21.8-53.1) % [place] % (Auto) 8.8 (5.3-12.2) % Eos % (Auto) 0 L (0.8-7.0) Baso % (Auto) 0.2 (0.1-1.2) % Neut # (Auto) 3.58 (1.78-5.38) K/mm3 Lymph # (Auto) 0.98 L (1.32-3.57) K/mm3 [place] # (Auto) 0.44 (0.30-0.82) K/mm3 Eos # (Auto) 0.00 L (0.04-0.54) K/mm3 Baso # (Auto) 0.01 (0.01-0.08) K/mm3 Manual Slide Review Normal smear D-Dimer, Quantitative (0.19-0.50) mg/L Sodium (136-145) mEq/L Potassium (3.5-5.1) mEq/L Chloride (98-107) mEq/L Carbon Dioxide (21-32) mEq/L Anion Gap (5-15) BUN (7-18) mg/dL Creatinine (0.7-1.3) mg/dL Est Cr Clr Drug Dosing mL/min Estimated GFR (MDRD) (>60) mL/min BUN/Creatinine Ratio (14-18) Glucose (70-99) mg/dL POC Glucose 298 H 322 H (70-99) mg/dL Hemoglobin A1c ( - 5.6) % Calcium (8.5-10.1) mg/dL Phosphorus (2.6-4.7) mg/dL Magnesium (1.8-2.4) mg/dL Total Bilirubin (0.2-1.0) mg/dL AST (15-37) U/L ALT (16-63) U/L Alkaline Phosphatase (46-116) U/L C-Reactive Protein (<1.0) mg/dL Total Protein (6.4-8.2) g/dl Albumin (3.4-5.0) g/dl Globulin gm/dL Albumin/Globulin Ratio (1-2) 12/03/20 12/03/20 12/03/20 Range/Units 07:03 07:03 11:20 WBC (4.23-9.07) K/mm3 RBC (4.63-6.08) M/mm3 Hgb (13.7-17.5) gm/dl Hct (40.1-51.0) % MCV (79.0-92.2) fl MCH (25.7-32.2) pg MCHC (32.2-35.5) g/dl RDW Std Deviation (35.1-43.9) fL Plt Count (163-337) K/mm3 MPV (9.4-12.3) fl Neut % (Auto) (34.0-67.9) % Lymph % (Auto) (21.8-53.1) % [place] % (Auto) (5.3-12.2) % Eos % (Auto) (0.8-7.0) Baso % (Auto) (0.1-1.2) % Neut # (Auto) (1.78-5.38) K/mm3 Lymph # (Auto) (1.32-3.57) K/mm3 [place] # (Auto) (0.30-0.82) K/mm3 Eos # (Auto) (0.04-0.54) K/mm3 Baso # (Auto) (0.01-0.08) K/mm3 Manual Slide Review D-Dimer, Quantitative (0.19-0.50) mg/L Sodium 136 (136-145) mEq/L Potassium 3.8 (3.5-5.1) mEq/L Chloride 101 (98-107) mEq/L Carbon Dioxide 27 (21-32) mEq/L Anion Gap 11.8 (5-15) BUN 16 (7-18) mg/dL Creatinine 0.9 (0.7-1.3) mg/dL Est Cr Clr Drug Dosing 76.88 mL/min Estimated GFR (MDRD) > 60 (>60) mL/min BUN/Creatinine Ratio 17.8 (14-18) Glucose 295 H (70-99) mg/dL POC Glucose 294 H (70-99) mg/dL Hemoglobin A1c 9.9 H ( - 5.6) % Calcium 8.1 L (8.5-10.1) mg/dL Phosphorus 2.8 (2.6-4.7) mg/dL Magnesium 1.6 L (1.8-2.4) mg/dL Total Bilirubin 0.5 (0.2-1.0) mg/dL AST 42 H (15-37) U/L ALT 46 (16-63) U/L Alkaline Phosphatase 44 L (46-116) U/L C-Reactive Protein 9.1 H* (<1.0) mg/dL Total Protein 6.8 (6.4-8.2) g/dl Albumin 2.7 L (3.4-5.0) g/dl Globulin 4.1 gm/dL Albumin/Globulin Ratio 0.7 L (1-2) Med Orders - Current: Current Medications Acetaminophen (Acetaminophen 325 Mg Tab) 650 mg PO Q4H PRN PRN Reason: Pain (Mild 1-3)/fever Albuterol (Albuterol 6.7 Gm Inhaler) 0 gm INH Q4H PRN PRN Reason: Shortness of Breath Albuterol/Ipratropium (Albuterol/Ipratropium 3.0-0.5 Mg/3 Ml Neb Soln) 3 ml NEB Q4HRRT PRN PRN Reason: Shortness of Breath Last Admin: 12/02/20 21:14 Dose: 3 ml Documented by: Aspirin (Aspirin 81 Mg Tab.Ec) 81 mg PO DAILY [facility] Last Admin: 12/03/20 08:25 Dose: 81 mg Documented by: Dexamethasone (Dexamethasone 4 Mg Tab) 6 mg PO DAILY [facility] Stop: 12/12/20 09:01 Last Admin: 12/03/20 08:25 Dose: 6 mg Documented by: Enoxaparin Sodium (Enoxaparin 40 Mg/0.4 Ml Syringe) 40 mg SUBCUT DAILY [facility] Last Admin: 12/03/20 08:26 Dose: 40 mg Documented by: Remdesivir 100 mg/ Sodium (Chloride) 100 mls @ 100 mls/hr IV Q24H [facility] Stop: 12/06/20 18:59 Ibuprofen (Ibuprofen 600 Mg Tab) 600 mg PO Q6H PRN PRN Reason: Pain (moderate 4-6) Insulin Glargine (Insulin Glarg,Human.Rec.Analog 100 Unit/Ml) 20 unit SUBCUT DAILY [facility] Last Admin: 12/03/20 11:24 Dose: 20 units Documented by: Insulin Human Lispro (Insulin Lispro 100 Unit/Ml 10 Ml Vial) 0 unit SUBCUT QIDACANDBED [facility]; Protocol Last Admin: 12/03/20 11:35 Dose: 4 units Documented by: Losartan Potassium (Losartan 100 Mg Tab) 100 mg PO DAILY [facility] Last Admin: 12/03/20 08:25 Dose: 100 mg Documented by: Magnesium Oxide (Magnesium Oxide 400 Mg Tab) 400 mg PO BID [facility] Last Admin: 12/03/20 08:25 Dose: 400 mg Documented by: Ondansetron HCl (Ondansetron 4 Mg/2 Ml Sdv) 4 mg IV Q6H PRN PRN Reason: Nausea/Vomiting Pantoprazole Sodium (Pantoprazole 40 Mg Tab.Cr) 40 mg PO ACBREAKFAST [facility] Last Admin: 12/03/20 06:13 Dose: 40 mg Documented by: Tamsulosin HCl (Tamsulosin 0.4 Mg Cap.Er) 0.4 mg PO DAILY [facility] Last Admin: 12/03/20 08:25 Dose: 0.4 mg Documented by: Temazepam (Temazepam 15 Mg Cap) 15 mg PO BEDTIME PRN PRN Reason: Sleep Discontinued Medications Dexamethasone (Dexamethasone 4 Mg Tab) 6 mg PO ONETIME ONE Stop: 12/02/20 14:31 Last Admin: 12/02/20 14:49 Dose: 6 mg Documented by: Remdesivir 200 mg/ Sodium (Chloride) 250 mls @ 250 mls/hr IV ONETIME ONE Stop: 12/02/20 18:59 Last Admin: 12/02/20 18:30 Dose: 250 mls/hr Documented by: Magnesium Oxide (Magnesium Oxide 400 Mg Tab) 400 mg PO ONETIME ONE Stop: 12/02/20 14:18 Last Admin: 12/02/20 14:49 Dose: 400 mg Documented by: Potassium Chloride (Potassium Chloride 20 Meq Tab.Er) 40 meq PO ONETIME ONE Stop: 12/02/20 14:17 Last Admin: 12/02/20 14:48 Dose: 40 meq Documented by: - Exam Quality Assessment: Supplemental Oxygen General: Alert, Oriented HEENT: Pupils Equal, Mucous Membr. Moist/[place] Neck: Supple Lungs: Crackles (Bibas[place]). No: Normal Respiratory Effort (Mildly increased rate and effort) Cardiovascular: Regular Rate, Regular Rhythm GI/Abdominal Exam: Normal Bowel Sounds, Soft, Non-Tender, No Distention Extremities: Normal Inspection, Normal Range of Motion, Non-Tender, No Pedal Edema, Normal Capillary Refill Skin: Warm, Dry, Intact Psy/Mental Status: Alert, Normal Affect, Normal Mood - Patient Data Lab Results Last 24 hrs: Laboratory Results - last 24 hr 12/02/20 12/02/20 12/02/20 Range/Units 13:49 13:49 13:49 WBC 6.30 (4.23-9.07) K/mm3 RBC 4.89 (4.63-6.08) M/mm3 Hgb 13.8 (13.7-17.5) gm/dl Hct 42.9 (40.1-51.0) % MCV 87.7 D (79.0-92.2) fl MCH 28.2 (25.7-32.2) pg MCHC 32.2 (32.2-35.5) g/dl RDW Std Deviation 43.8 (35.1-43.9) fL Plt Count 195 (163-337) K/mm3 MPV 9.9 (9.4-12.3) fl Neut % (Auto) 73.7 H (34.0-67.9) % Lymph % (Auto) 20.2 L (21.8-53.1) % [place] % (Auto) 5.6 (5.3-12.2) % Eos % (Auto) 0 L (0.8-7.0) Baso % (Auto) 0.2 (0.1-1.2) % Neut # (Auto) 4.65 (1.78-5.38) K/mm3 Lymph # (Auto) 1.27 L (1.32-3.57) K/mm3 [place] # (Auto) 0.35 (0.30-0.82) K/mm3 Eos # (Auto) 0.00 L (0.04-0.54) K/mm3 Baso # (Auto) 0.01 (0.01-0.08) K/mm3 Manual Slide Review D-Dimer, Quantitative 0.46 (0.19-0.50) mg/L Sodium 137 (136-145) mEq/L Potassium 3.2 L (3.5-5.1) mEq/L Chloride 101 (98-107) mEq/L Carbon Dioxide 29 (21-32) mEq/L Anion Gap 10.2 (5-15) BUN 13 (7-18) mg/dL Creatinine 1.0 (0.7-1.3) mg/dL Est Cr Clr Drug Dosing 69.19 mL/min Estimated GFR (MDRD) > 60 (>60) mL/min BUN/Creatinine Ratio 13.0 L (14-18) Glucose 223 H (70-99) mg/dL POC Glucose (70-99) mg/dL Hemoglobin A1c ( - 5.6) % Calcium 8.2 L (8.5-10.1) mg/dL Phosphorus (2.6-4.7) mg/dL Magnesium 1.7 L (1.8-2.4) mg/dL Total Bilirubin 0.5 (0.2-1.0) mg/dL AST 56 H (15-37) U/L ALT 50 (16-63) U/L Alkaline Phosphatase 53 (46-116) U/L C-Reactive Protein 7.9 H* (<1.0) mg/dL Total Protein 7.1 (6.4-8.2) g/dl Albumin 2.9 L (3.4-5.0) g/dl Globulin 4.2 gm/dL Albumin/Globulin Ratio 0.7 L (1-2) 12/02/20 12/03/20 12/03/20 Range/Units 21:25 06:11 07:03 WBC 5.02 (4.23-9.07) K/mm3 RBC 4.83 (4.63-6.08) M/mm3 Hgb 13.4 L (13.7-17.5) gm/dl Hct 42.0 (40.1-51.0) % MCV 87.0 (79.0-92.2) fl MCH 27.7 (25.7-32.2) pg MCHC 31.9 L (32.2-35.5) g/dl RDW Std Deviation 43.0 (35.1-43.9) fL Plt Count 216 (163-337) K/mm3 MPV 10.1 (9.4-12.3) fl Neut % (Auto) 71.3 H (34.0-67.9) % Lymph % (Auto) 19.5 L (21.8-53.1) % [place] % (Auto) 8.8 (5.3-12.2) % Eos % (Auto) 0 L (0.8-7.0) Baso % (Auto) 0.2 (0.1-1.2) % Neut # (Auto) 3.58 (1.78-5.38) K/mm3 Lymph # (Auto) 0.98 L (1.32-3.57) K/mm3 [place] # (Auto) 0.44 (0.30-0.82) K/mm3 Eos # (Auto) 0.00 L (0.04-0.54) K/mm3 Baso # (Auto) 0.01 (0.01-0.08) K/mm3 Manual Slide Review Normal smear D-Dimer, Quantitative (0.19-0.50) mg/L Sodium (136-145) mEq/L Potassium (3.5-5.1) mEq/L Chloride (98-107) mEq/L Carbon Dioxide (21-32) mEq/L Anion Gap (5-15) BUN (7-18) mg/dL Creatinine (0.7-1.3) mg/dL Est Cr Clr Drug Dosing mL/min Estimated GFR (MDRD) (>60) mL/min BUN/Creatinine Ratio (14-18) Glucose (70-99) mg/dL POC Glucose 298 H 322 H (70-99) mg/dL Hemoglobin A1c ( - 5.6) % Calcium (8.5-10.1) mg/dL Phosphorus (2.6-4.7) mg/dL Magnesium (1.8-2.4) mg/dL Total Bilirubin (0.2-1.0) mg/dL AST (15-37) U/L ALT (16-63) U/L Alkaline Phosphatase (46-116) U/L C-Reactive Protein (<1.0) mg/dL Total Protein (6.4-8.2) g/dl Albumin (3.4-5.0) g/dl Globulin gm/dL Albumin/Globulin Ratio (1-2) 12/03/20 12/03/20 12/03/20 Range/Units 07:03 07:03 11:20 WBC (4.23-9.07) K/mm3 RBC (4.63-6.08) M/mm3 Hgb (13.7-17.5) gm/dl Hct (40.1-51.0) % MCV (79.0-92.2) fl MCH (25.7-32.2) pg MCHC (32.2-35.5) g/dl RDW Std Deviation (35.1-43.9) fL Plt Count (163-337) K/mm3 MPV (9.4-12.3) fl Neut % (Auto) (34.0-67.9) % Lymph % (Auto) (21.8-53.1) % [place] % (Auto) (5.3-12.2) % Eos % (Auto) (0.8-7.0) Baso % (Auto) (0.1-1.2) % Neut # (Auto) (1.78-5.38) K/mm3 Lymph # (Auto) (1.32-3.57) K/mm3 [place] # (Auto) (0.30-0.82) K/mm3 Eos # (Auto) (0.04-0.54) K/mm3 Baso # (Auto) (0.01-0.08) K/mm3 Manual Slide Review D-Dimer, Quantitative (0.19-0.50) mg/L Sodium 136 (136-145) mEq/L Potassium 3.8 (3.5-5.1) mEq/L Chloride 101 (98-107) mEq/L Carbon Dioxide 27 (21-32) mEq/L Anion Gap 11.8 (5-15) BUN 16 (7-18) mg/dL Creatinine 0.9 (0.7-1.3) mg/dL Est Cr Clr Drug Dosing 76.88 mL/min Estimated GFR (MDRD) > 60 (>60) mL/min BUN/Creatinine Ratio 17.8 (14-18) Glucose 295 H (70-99) mg/dL POC Glucose 294 H (70-99) mg/dL Hemoglobin A1c 9.9 H ( - 5.6) % Calcium 8.1 L (8.5-10.1) mg/dL Phosphorus 2.8 (2.6-4.7) mg/dL Magnesium 1.6 L (1.8-2.4) mg/dL Total Bilirubin 0.5 (0.2-1.0) mg/dL AST 42 H (15-37) U/L ALT 46 (16-63) U/L Alkaline Phosphatase 44 L (46-116) U/L C-Reactive Protein 9.1 H* (<1.0) mg/dL Total Protein 6.8 (6.4-8.2) g/dl Albumin 2.7 L (3.4-5.0) g/dl Globulin 4.1 gm/dL Albumin/Globulin Ratio 0.7 L (1-2) Result Diagrams: 12/03/20 07:03 12/03/20 07:03 Sepsis Event Note - Evaluation Sepsis Screening Result: Sepsis Risk - Focused Exam Vital Signs: Vital Signs Temp Pulse Pulse Resp BP Pulse Ox Pulse Ox 12/03/20 11:22 98.2 F 92 16 120/64 12/03/20 09:24 92 L 12/03/20 08:25 116/62 12/03/20 08:20 98.8 F 14 116/62 12/03/20 08:00 99 91 L 12/03/20 04:02 99.0 F 20 143/51 H - Problem List & Annotations (1) Type 2 diabetes mellitus SNOMED Code(s): 56957157 Code(s): E11.9 - TYPE 2 DIABETES MELLITUS WITHOUT COMPLICATIONS Status: Acute Current Visit: Yes (2) Hypoxemia SNOMED Code(s): 955965642 Code(s): R09.02 - HYPOXEMIA Status: Acute Current Visit: Yes (3) Pneumonia due to COVID-19 virus SNOMED Code(s): 933931748045027125 Code(s): U07.1 - COVID-19; J12.82 - PNEUMONIA DUE TO CORONAVIRUS DISEASE 2019 Status: Acute Current Visit: Yes - Problem List Review Problem List Initiated/Reviewed/Updated: Yes - My Orders Last 24 Hours: My Active Orders 12/02/20 Dinner Consistent Carbohydrate Diet [DIET] 12/02/20 17:29 Cardiac Monitoring [RC] . DIRECTED Nurse Communication: Isolation [RC] ASDIRECTED Oxygen Therapy [RC] PRN RT Incentive Spirometry [RC] ASDIRECTED Up ad [place] [RC] ASDIRECTED VTE/DVT Education [RC] PER UNIT ROUTINE Vital Signs [RC] Q4HR Acetaminophen [TylenoL] 650 mg PO Q4H PRN Ibuprofen [Motrin] 600 mg PO Q6H PRN Ondansetron [Zofran] 4 mg IV Q6H PRN Temazepam [Restoril] 15 mg PO BEDTIME PRN Isolation [COMM] Stat Resuscitation Status Routine 12/02/20 17:31 Positioning, Patient [RC] ASDIRECTED 12/02/20 17:33 Blood Glucose Check, Bedside [RC] QIDACANDBED 12/02/20 17:36 RT Aerosol Therapy [RC] ASDIRECTED RT Post Treatment Assessment [RC] Click to Edit RT Pre-Treatment Assessment [RC] Click to Edit Albuterol [Proventil HFA] See Dose Instructions INH Q4H PRN Albuterol/Ipratropium [DuoNeb 3.0-0.5 MG/3 ML] 3 ml NEB Q4HRRT PRN 12/02/20 21:00 Magnesium Oxide 400 mg PO BID 12/02/20 22:00 Insulin Lispro [HumaLOG] See Protocol SUBCUT QIDACANDBED 12/02/20 22:55 Pulse Oximetry [RC] CONTINUOUS 12/03/20 06:00 Pantoprazole [ProTONIX] 40 mg PO ACBREAKFAST 12/03/20 09:00 Aspirin [Halfprin] 81 mg PO DAILY Enoxaparin [Lovenox] 40 mg SUBCUT DAILY Losartan [Cozaar] 100 mg PO DAILY Tamsulosin [Flomax] 0.4 mg PO DAILY dexAMETHasone 6 mg PO DAILY 12/03/20 10:15 Insulin Glarg,Human.Rec.Analog [LantUS] 20 unit SUBCUT DAILY 12/03/20 18:00 Remdesivir 100 mg Sodium Chloride 0.9% [Normal Saline] 100 ml IV Q24H 12/04/20 05:11 C-REACTIVE PROTEIN [CHEM] AM CBC WITH AUTO DIFF [HEME] AM CMP [COMPREHENSIVE METABOLIC PN,CMP] [CHEM] AM MAGNESIUM [CHEM] AM PHOSPHORUS [CHEM] AM 12/05/20 05:11 C-REACTIVE PROTEIN [CHEM] AM CBC WITH AUTO DIFF [HEME] AM CMP [COMPREHENSIVE METABOLIC PN,CMP] [CHEM] AM MAGNESIUM [CHEM] AM PHOSPHORUS [CHEM] AM 12/06/20 05:11 C-REACTIVE PROTEIN [CHEM] AM CBC WITH AUTO DIFF [HEME] AM CMP [COMPREHENSIVE METABOLIC PN,CMP] [CHEM] AM MAGNESIUM [CHEM] AM PHOSPHORUS [CHEM] AM 12/07/20 05:11 C-REACTIVE PROTEIN [CHEM] AM CBC WITH AUTO DIFF [HEME] AM CMP [COMPREHENSIVE METABOLIC PN,CMP] [CHEM] AM MAGNESIUM [CHEM] AM PHOSPHORUS [CHEM] AM - Plan Plan:: 59-year-old diabetic male, unvaccinated against COVID-19, presents with Covid- like symptoms for 8 days. Covid pneumonia with hypoxemia On admission * On 2 L nasal cannula from the ER * Symptoms of 8 days with worsening shortness of breath and saturations in the 80s at home * Several days of diarrhea * Morbid obesity, BMI 52, putting had much higher risk for complications * CRP 7.9, albumin 2.9, WBC 6.3, D-dimer 0.46 * Chest x-ray suspicious for moderately severe COVID pneumonia. Mild cardiomegaly * Given dexamethasone in the emergency department 12/03/2020 Oxygenation has improved and he is down to 1 L nasal cannula. Unfortunately, his C-reactive protein has increased overnight to 9.1 and his albumin dropped to 2.7. He continues on remdesivir and dexamethasone. Type 2 diabetes mellitus On admission * Unknown hemoglobin A1c at this time * Presenting blood sugar 223 * Home meds include pioglitazone and glimepiride 12/03/2020 Hemoglobin A1c returned at 9.9 showing poor control prior to admission. Blood sugars are in upper 200s on average. He is currently on only a sliding scale. Home medicines were held since they are pioglitazone and glimepiride Hypokalemia/hypomagnesemia On admission * Initial potassium 3.2 * Magnesium 1.7 * Likely secondary to GI loss 12/03/2020 Magnesium and potassium are both normal. No supplementation needed Hypertension On admission * Blood pressures well controlled on home medications of losartan and hydrochlorothiazide 12/03/2020 Blood pressure is well controlled on just losartan at this time. Plan * Admit to medical floor in strict isolation * FiO2 to keep SPO2 between 88 and 94% * RT, I-S, prone positioning and routine COVID-19 pneumonia respiratory care * Albuterol and duo nebs as needed as part of standard Covid treatment * Day 2 of 5 remdesivir * Day 2 of 10 dexamethasone * Start Lantus 20 units daily. * Had 7 units lispro prior to each meal * Continue sliding scale insulin medium dose * Follow CBC, CMP, mag, Phos, CRP, and occasional D-dimer * Continue losartan 100 mg daily, but hold hydrochlorothiazide at this time and monitor blood pressure * Lovenox 40 mg subcu daily for VTE prophylaxis. * CODE STATUS full code
[2020-12-03] MEDS ORDERED: Loperamide 2 MG Cap PO PRN (13:23)
[2020-12-03] MEDS ORDERED: Lidocaine 1% 8 ML ONE (19:58)
[2020-12-03] MEDS: REMDESIVIR 100 MG in Sodium Chloride 0.9% 100 ML IV SCH (21:18)
--- NOTE | 2020-12-03 22:14 | PCM.SN.2 ---
- Free Text/Narrative Note: Anesthesia Note: Start: 1844 Stop: 2132 Anesthesia requested for IV start. After multiple attempts 20 gauge to left thumb area. Site patent and intact, and flushed times 20ml's normal saline. Patient tolerated multiple attempts very well. Sites localized with lidocaine. In attempts to achieve an even better additional site, US guidance attempted with no success. Nursing staff encouraged to run medications slowly to preserve present IV site. Thank you! Romy [employer] Time Documentation
[2020-12-04] MEDS: Pantoprazole 40 MG Tab.CR PO SCH (05:58)
[2020-12-04] MEDS: Aspirin 81 MG Tab.EC PO SCH (08:15)
[2020-12-04] MEDS: Tamsulosin 0.4 MG Cap.ER PO SCH (08:15)
[2020-12-04] MEDS: Dexamethasone 4 MG Tab PO SCH (08:15)
[2020-12-04] MEDS: Magnesium Oxide 400 MG Tab PO SCH ×2 (08:15→21:48)
[2020-12-04] MEDS: Enoxaparin 40 MG/0.4 ML Syringe SUBCUT SCH (08:20)
[2020-12-04] MEDS: Insulin Glarg,Human.Rec.Analog 100 Unit/ML SUBCUT SCH (08:21)
[2020-12-04] MEDS: Insulin Lispro 100 UNIT/ML 10 ML Vial SUBCUT SCH ×6 (08:21→21:49)
--- NOTE | 2020-12-04 11:22 | PCM.PN ---
- General Info Date of Service: 12/04/20 Admission Dx/Problem (Free Text): Admission Diagnosis/Problem Admission Diagnosis/Problem Hypoxia Functional Status: Reports: Pain Controlled, Tolerating Diet, Ambulating, Urinating, Incentive Spirometry. Denies: New Symptoms - Review of Systems General: Reports: No Symptoms. Denies: Fever, Weakness, Fatigue, Malaise, Chills HEENT: Reports: No Symptoms. Denies: Headaches, Sore Throat Pulmonary: Reports: Shortness of Breath, Cough Cardiovascular: Reports: No Symptoms, Dyspnea on Exertion. Denies: Chest Pain, Palpitations Gastrointestinal: Reports: No Symptoms. Denies: Abdominal Pain, Constipation, Diarrhea, Nausea, Vomiting Genitourinary: Reports: No Symptoms. Denies: Pain Musculoskeletal: Reports: No Symptoms Skin: Reports: No Symptoms. Denies: Cyanosis Neurological: Reports: No Symptoms. Denies: Confusion, Numbness, Pre-Existing Deficit, Tingling, Trouble Speaking, Difficulty Walking, Weakness, Gait Disturbance Psychiatric: Reports: No Symptoms - Patient Data Vitals - Most Recent: Last Vital Signs Temp 97.9 F 12/04/20 08:20 Pulse 88 12/04/20 08:20 Resp 14 12/04/20 08:20 BP 107/58 L 12/04/20 08:20 Pulse Ox 92 L 12/04/20 06:05 Weight - Most Recent: 311 lb 6.4 oz I&O - Last 24 Hours: Intake & Output 12/03/20 12/04/20 12/04/20 22:59 06:59 14:59 Intake Total 1275 1200 240 Output Total 600 1275 Balance 675 -75 240 Lab Results Last 24 Hours: Laboratory Results - last 24 hr 12/03/20 12/03/20 12/03/20 Range/Units 11:20 16:40 21:12 WBC (4.23-9.07) K/mm3 RBC (4.63-6.08) M/mm3 Hgb (13.7-17.5) gm/dl Hct (40.1-51.0) % MCV (79.0-92.2) fl MCH (25.7-32.2) pg MCHC (32.2-35.5) g/dl RDW Std Deviation (35.1-43.9) fL Plt Count (163-337) K/mm3 MPV (9.4-12.3) fl Neut % (Auto) (34.0-67.9) % Lymph % (Auto) (21.8-53.1) % Ellis % (Auto) (5.3-12.2) % Eos % (Auto) (0.8-7.0) Baso % (Auto) (0.1-1.2) % Neut # (Auto) (1.78-5.38) K/mm3 Lymph # (Auto) (1.32-3.57) K/mm3 Ellis # (Auto) (0.30-0.82) K/mm3 Eos # (Auto) (0.04-0.54) K/mm3 Baso # (Auto) (0.01-0.08) K/mm3 Manual Slide Review Sodium (136-145) mEq/L Potassium (3.5-5.1) mEq/L Chloride (98-107) mEq/L Carbon Dioxide (21-32) mEq/L Anion Gap (5-15) BUN (7-18) mg/dL Creatinine (0.7-1.3) mg/dL Est Cr Clr Drug Dosing mL/min Estimated GFR (MDRD) (>60) mL/min BUN/Creatinine Ratio (14-18) Glucose (70-99) mg/dL POC Glucose 294 H 281 H 346 H (70-99) mg/dL Calcium (8.5-10.1) mg/dL Phosphorus (2.6-4.7) mg/dL Magnesium (1.8-2.4) mg/dL Total Bilirubin (0.2-1.0) mg/dL AST (15-37) U/L ALT (16-63) U/L Alkaline Phosphatase (46-116) U/L C-Reactive Protein (<1.0) mg/dL Total Protein (6.4-8.2) g/dl Albumin (3.4-5.0) g/dl Globulin gm/dL Albumin/Globulin Ratio (1-2) 12/04/20 12/04/20 12/04/20 Range/Units 05:56 07:25 07:25 WBC 9.26 H (4.23-9.07) K/mm3 RBC 4.81 (4.63-6.08) M/mm3 Hgb 13.5 L (13.7-17.5) gm/dl Hct 41.8 (40.1-51.0) % MCV 86.9 (79.0-92.2) fl MCH 28.1 (25.7-32.2) pg MCHC 32.3 (32.2-35.5) g/dl RDW Std Deviation 41.9 (35.1-43.9) fL Plt Count 266 (163-337) K/mm3 MPV 9.9 (9.4-12.3) fl Neut % (Auto) 73.5 H (34.0-67.9) % Lymph % (Auto) 15.3 L (21.8-53.1) % Ellis % (Auto) 10.8 (5.3-12.2) % Eos % (Auto) 0 L (0.8-7.0) Baso % (Auto) 0.2 (0.1-1.2) % Neut # (Auto) 6.80 H (1.78-5.38) K/mm3 Lymph # (Auto) 1.42 (1.32-3.57) K/mm3 Ellis # (Auto) 1.00 H (0.30-0.82) K/mm3 Eos # (Auto) 0.00 L (0.04-0.54) K/mm3 Baso # (Auto) 0.02 (0.01-0.08) K/mm3 Manual Slide Review Abnormal smear Sodium 139 (136-145) mEq/L Potassium 4.1 (3.5-5.1) mEq/L Chloride 103 (98-107) mEq/L Carbon Dioxide 28 (21-32) mEq/L Anion Gap 12.1 (5-15) BUN 22 H (7-18) mg/dL Creatinine 1.0 (0.7-1.3) mg/dL Est Cr Clr Drug Dosing 69.19 mL/min Estimated GFR (MDRD) > 60 (>60) mL/min BUN/Creatinine Ratio 22.0 H (14-18) Glucose 286 H (70-99) mg/dL POC Glucose 266 H (70-99) mg/dL Calcium 8.3 L (8.5-10.1) mg/dL Phosphorus 3.4 (2.6-4.7) mg/dL Magnesium 1.9 (1.8-2.4) mg/dL Total Bilirubin 0.4 (0.2-1.0) mg/dL AST 36 (15-37) U/L ALT 43 (16-63) U/L Alkaline Phosphatase 43 L (46-116) U/L C-Reactive Protein 3.7 H* (<1.0) mg/dL Total Protein 6.6 (6.4-8.2) g/dl Albumin 2.6 L (3.4-5.0) g/dl Globulin 4.0 gm/dL Albumin/Globulin Ratio 0.7 L (1-2) 12/04/20 Range/Units 11:01 WBC (4.23-9.07) K/mm3 RBC (4.63-6.08) M/mm3 Hgb (13.7-17.5) gm/dl Hct (40.1-51.0) % MCV (79.0-92.2) fl MCH (25.7-32.2) pg MCHC (32.2-35.5) g/dl RDW Std Deviation (35.1-43.9) fL Plt Count (163-337) K/mm3 MPV (9.4-12.3) fl Neut % (Auto) (34.0-67.9) % Lymph % (Auto) (21.8-53.1) % Ellis % (Auto) (5.3-12.2) % Eos % (Auto) (0.8-7.0) Baso % (Auto) (0.1-1.2) % Neut # (Auto) (1.78-5.38) K/mm3 Lymph # (Auto) (1.32-3.57) K/mm3 Ellis # (Auto) (0.30-0.82) K/mm3 Eos # (Auto) (0.04-0.54) K/mm3 Baso # (Auto) (0.01-0.08) K/mm3 Manual Slide Review Sodium (136-145) mEq/L Potassium (3.5-5.1) mEq/L Chloride (98-107) mEq/L Carbon Dioxide (21-32) mEq/L Anion Gap (5-15) BUN (7-18) mg/dL Creatinine (0.7-1.3) mg/dL Est Cr Clr Drug Dosing mL/min Estimated GFR (MDRD) (>60) mL/min BUN/Creatinine Ratio (14-18) Glucose (70-99) mg/dL POC Glucose 291 H (70-99) mg/dL Calcium (8.5-10.1) mg/dL Phosphorus (2.6-4.7) mg/dL Magnesium (1.8-2.4) mg/dL Total Bilirubin (0.2-1.0) mg/dL AST (15-37) U/L ALT (16-63) U/L Alkaline Phosphatase (46-116) U/L C-Reactive Protein (<1.0) mg/dL Total Protein (6.4-8.2) g/dl Albumin (3.4-5.0) g/dl Globulin gm/dL Albumin/Globulin Ratio (1-2) Med Orders - Current: Current Medications Acetaminophen (Acetaminophen 325 Mg Tab) 650 mg PO Q4H PRN PRN Reason: Pain (Mild 1-3)/fever Albuterol (Albuterol 6.7 Gm Inhaler) 0 gm INH Q4H PRN PRN Reason: Shortness of Breath Albuterol/Ipratropium (Albuterol/Ipratropium 3.0-0.5 Mg/3 Ml Neb Soln) 3 ml NEB Q4HRRT PRN PRN Reason: Shortness of Breath Last Admin: 12/02/20 21:14 Dose: 3 ml Documented by: Aspirin (Aspirin 81 Mg Tab.Ec) 81 mg PO DAILY [facility] Last Admin: 12/04/20 08:15 Dose: 81 mg Documented by: Dexamethasone (Dexamethasone 4 Mg Tab) 6 mg PO DAILY [facility] Stop: 12/12/20 09:01 Last Admin: 12/04/20 08:15 Dose: 6 mg Documented by: Enoxaparin Sodium (Enoxaparin 40 Mg/0.4 Ml Syringe) 40 mg SUBCUT DAILY [facility] Last Admin: 12/04/20 08:20 Dose: 40 mg Documented by: Remdesivir 100 mg/ Sodium (Chloride) 100 mls @ 100 mls/hr IV Q24H [facility] Stop: 12/06/20 18:59 Last Admin: 12/03/20 21:18 Dose: 100 mls/hr Documented by: Ibuprofen (Ibuprofen 600 Mg Tab) 600 mg PO Q6H PRN PRN Reason: Pain (moderate 4-6) Insulin Glargine (Insulin Glarg,Human.Rec.Analog 100 Unit/Ml) 20 unit SUBCUT DAILY [facility] Last Admin: 12/04/20 08:21 Dose: 20 units Documented by: Insulin Human Lispro (Insulin Lispro 100 Unit/Ml 10 Ml Vial) 0 unit SUBCUT QIDACANDBED [facility]; Protocol Last Admin: 12/04/20 08:21 Dose: 6 units Documented by: Insulin Human Lispro (Insulin Lispro 100 Unit/Ml 10 Ml Vial) 7 unit SUBCUT TIDAC [facility] Last Admin: 12/04/20 08:22 Dose: 7 units Documented by: Loperamide HCl (Loperamide 2 Mg Cap) 4 mg PO Q6H PRN PRN Reason: Diarrhea Last Admin: 12/03/20 13:35 Dose: 4 mg Documented by: Losartan Potassium (Losartan 100 Mg Tab) 100 mg PO DAILY [facility] Last Admin: 12/03/20 08:25 Dose: 100 mg Documented by: Magnesium Oxide (Magnesium Oxide 400 Mg Tab) 400 mg PO BID [facility] Last Admin: 12/04/20 08:15 Dose: 400 mg Documented by: Ondansetron HCl (Ondansetron 4 Mg/2 Ml Sdv) 4 mg IV Q6H PRN PRN Reason: Nausea/Vomiting Pantoprazole Sodium (Pantoprazole 40 Mg Tab.Cr) 40 mg PO ACBREAKFAST [facility] Last Admin: 12/04/20 05:58 Dose: 40 mg Documented by: Tamsulosin HCl (Tamsulosin 0.4 Mg Cap.Er) 0.4 mg PO DAILY [facility] Last Admin: 12/04/20 08:15 Dose: 0.4 mg Documented by: Temazepam (Temazepam 15 Mg Cap) 15 mg PO BEDTIME PRN PRN Reason: Sleep Discontinued Medications Dexamethasone (Dexamethasone 4 Mg Tab) 6 mg PO ONETIME ONE Stop: 12/02/20 14:31 Last Admin: 12/02/20 14:49 Dose: 6 mg Documented by: Remdesivir 200 mg/ Sodium (Chloride) 250 mls @ 250 mls/hr IV ONETIME ONE Stop: 12/02/20 18:59 Last Admin: 12/02/20 18:30 Dose: 250 mls/hr Documented by: Lidocaine HCl (Xylocaine-Mpf 1%) Confirm Administered Dose 8 mls @ as directed .ROUTE .STK-MED ONE Stop: 12/03/20 19:59 Magnesium Oxide (Magnesium Oxide 400 Mg Tab) 400 mg PO ONETIME ONE Stop: 12/02/20 14:18 Last Admin: 12/02/20 14:49 Dose: 400 mg Documented by: Potassium Chloride (Potassium Chloride 20 Meq Tab.Er) 40 meq PO ONETIME ONE Stop: 12/02/20 14:17 Last Admin: 12/02/20 14:48 Dose: 40 meq Documented by: - Exam Quality Assessment: Supplemental Oxygen (1L), DVT Prophylaxis General: Alert, Oriented, Cooperative, No Acute Distress HEENT: Pupils Equal, Pupils Reactive, Mucous Membr. Moist/[place] Neck: Supple, Trachea Midline Lungs: Normal Respiratory Effort, Decreased Breath Sounds, Crackles Cardiovascular: Regular Rate, Regular Rhythm GI/Abdominal Exam: Normal Bowel Sounds, Soft, Non-Tender, No Distention (Male) Exam: Deferred Back Exam: Normal Inspection, Full Range of Motion Extremities: Normal Inspection, Normal Range of Motion, Non-Tender, No Pedal Edema, Normal Capillary Refill Peripheral Pulses: 2+: Radial (L), Radial (R), Dorsalis Pedis (L), Dorsalis Pedis (R) Skin: Warm, Dry, Intact Neurological: No New Focal Deficit Psy/Mental Status: Alert, Normal Affect, Normal Mood - Patient Data Lab Results Last 24 hrs: Laboratory Results - last 24 hr 12/03/20 12/03/20 12/03/20 Range/Units 11:20 16:40 21:12 WBC (4.23-9.07) K/mm3 RBC (4.63-6.08) M/mm3 Hgb (13.7-17.5) gm/dl Hct (40.1-51.0) % MCV (79.0-92.2) fl MCH (25.7-32.2) pg MCHC (32.2-35.5) g/dl RDW Std Deviation (35.1-43.9) fL Plt Count (163-337) K/mm3 MPV (9.4-12.3) fl Neut % (Auto) (34.0-67.9) % Lymph % (Auto) (21.8-53.1) % Ellis % (Auto) (5.3-12.2) % Eos % (Auto) (0.8-7.0) Baso % (Auto) (0.1-1.2) % Neut # (Auto) (1.78-5.38) K/mm3 Lymph # (Auto) (1.32-3.57) K/mm3 Ellis # (Auto) (0.30-0.82) K/mm3 Eos # (Auto) (0.04-0.54) K/mm3 Baso # (Auto) (0.01-0.08) K/mm3 Manual Slide Review Sodium (136-145) mEq/L Potassium (3.5-5.1) mEq/L Chloride (98-107) mEq/L Carbon Dioxide (21-32) mEq/L Anion Gap (5-15) BUN (7-18) mg/dL Creatinine (0.7-1.3) mg/dL Est Cr Clr Drug Dosing mL/min Estimated GFR (MDRD) (>60) mL/min BUN/Creatinine Ratio (14-18) Glucose (70-99) mg/dL POC Glucose 294 H 281 H 346 H (70-99) mg/dL Calcium (8.5-10.1) mg/dL Phosphorus (2.6-4.7) mg/dL Magnesium (1.8-2.4) mg/dL Total Bilirubin (0.2-1.0) mg/dL AST (15-37) U/L ALT (16-63) U/L Alkaline Phosphatase (46-116) U/L C-Reactive Protein (<1.0) mg/dL Total Protein (6.4-8.2) g/dl Albumin (3.4-5.0) g/dl Globulin gm/dL Albumin/Globulin Ratio (1-2) 12/04/20 12/04/20 12/04/20 Range/Units 05:56 07:25 07:25 WBC 9.26 H (4.23-9.07) K/mm3 RBC 4.81 (4.63-6.08) M/mm3 Hgb 13.5 L (13.7-17.5) gm/dl Hct 41.8 (40.1-51.0) % MCV 86.9 (79.0-92.2) fl MCH 28.1 (25.7-32.2) pg MCHC 32.3 (32.2-35.5) g/dl RDW Std Deviation 41.9 (35.1-43.9) fL Plt Count 266 (163-337) K/mm3 MPV 9.9 (9.4-12.3) fl Neut % (Auto) 73.5 H (34.0-67.9) % Lymph % (Auto) 15.3 L (21.8-53.1) % Ellis % (Auto) 10.8 (5.3-12.2) % Eos % (Auto) 0 L (0.8-7.0) Baso % (Auto) 0.2 (0.1-1.2) % Neut # (Auto) 6.80 H (1.78-5.38) K/mm3 Lymph # (Auto) 1.42 (1.32-3.57) K/mm3 Ellis # (Auto) 1.00 H (0.30-0.82) K/mm3 Eos # (Auto) 0.00 L (0.04-0.54) K/mm3 Baso # (Auto) 0.02 (0.01-0.08) K/mm3 Manual Slide Review Abnormal smear Sodium 139 (136-145) mEq/L Potassium 4.1 (3.5-5.1) mEq/L Chloride 103 (98-107) mEq/L Carbon Dioxide 28 (21-32) mEq/L Anion Gap 12.1 (5-15) BUN 22 H (7-18) mg/dL Creatinine 1.0 (0.7-1.3) mg/dL Est Cr Clr Drug Dosing 69.19 mL/min Estimated GFR (MDRD) > 60 (>60) mL/min BUN/Creatinine Ratio 22.0 H (14-18) Glucose 286 H (70-99) mg/dL POC Glucose 266 H (70-99) mg/dL Calcium 8.3 L (8.5-10.1) mg/dL Phosphorus 3.4 (2.6-4.7) mg/dL Magnesium 1.9 (1.8-2.4) mg/dL Total Bilirubin 0.4 (0.2-1.0) mg/dL AST 36 (15-37) U/L ALT 43 (16-63) U/L Alkaline Phosphatase 43 L (46-116) U/L C-Reactive Protein 3.7 H* (<1.0) mg/dL Total Protein 6.6 (6.4-8.2) g/dl Albumin 2.6 L (3.4-5.0) g/dl Globulin 4.0 gm/dL Albumin/Globulin Ratio 0.7 L (1-2) 12/04/20 Range/Units 11:01 WBC (4.23-9.07) K/mm3 RBC (4.63-6.08) M/mm3 Hgb (13.7-17.5) gm/dl Hct (40.1-51.0) % MCV (79.0-92.2) fl MCH (25.7-32.2) pg MCHC (32.2-35.5) g/dl RDW Std Deviation (35.1-43.9) fL Plt Count (163-337) K/mm3 MPV (9.4-12.3) fl Neut % (Auto) (34.0-67.9) % Lymph % (Auto) (21.8-53.1) % Ellis % (Auto) (5.3-12.2) % Eos % (Auto) (0.8-7.0) Baso % (Auto) (0.1-1.2) % Neut # (Auto) (1.78-5.38) K/mm3 Lymph # (Auto) (1.32-3.57) K/mm3 Ellis # (Auto) (0.30-0.82) K/mm3 Eos # (Auto) (0.04-0.54) K/mm3 Baso # (Auto) (0.01-0.08) K/mm3 Manual Slide Review Sodium (136-145) mEq/L Potassium (3.5-5.1) mEq/L Chloride (98-107) mEq/L Carbon Dioxide (21-32) mEq/L Anion Gap (5-15) BUN (7-18) mg/dL Creatinine (0.7-1.3) mg/dL Est Cr Clr Drug Dosing mL/min Estimated GFR (MDRD) (>60) mL/min BUN/Creatinine Ratio (14-18) Glucose (70-99) mg/dL POC Glucose 291 H (70-99) mg/dL Calcium (8.5-10.1) mg/dL Phosphorus (2.6-4.7) mg/dL Magnesium (1.8-2.4) mg/dL Total Bilirubin (0.2-1.0) mg/dL AST (15-37) U/L ALT (16-63) U/L Alkaline Phosphatase (46-116) U/L C-Reactive Protein (<1.0) mg/dL Total Protein (6.4-8.2) g/dl Albumin (3.4-5.0) g/dl Globulin gm/dL Albumin/Globulin Ratio (1-2) Result Diagrams: 12/04/20 07:25 12/04/20 07:25 Sepsis Event Note - Evaluation Sepsis Screening Result: No Definite Risk - Focused Exam Vital Signs: Vital Signs Temp Pulse Resp BP Pulse Ox 12/04/20 08:20 97.9 F 88 14 107/58 L 12/04/20 06:05 92 L 12/04/20 05:54 98.8 F 20 124/77 12/04/20 01:42 98.4 F 20 112/65 - Problem List & Annotations (1) Hypoxemia SNOMED Code(s): 569329045 Code(s): R09.02 - HYPOXEMIA Status: Acute Priority: High Current Visit: Yes (2) Pneumonia due to COVID-19 virus SNOMED Code(s): 055413955787828715 Code(s): U07.1 - COVID-19; J12.82 - PNEUMONIA DUE TO CORONAVIRUS DISEASE 2019 Status: Acute Priority: High Current Visit: Yes (3) Type 2 diabetes mellitus SNOMED Code(s): 08405783 Code(s): E11.9 - TYPE 2 DIABETES MELLITUS WITHOUT COMPLICATIONS Status: Chronic Priority: Medium Current Visit: Yes Qualifiers: Diabetes mellitus intermediate designer insulin use: without correction use Diabetes mellitus complication status: with other specified complication Qualified Code(s): E11.69 - Type 2 diabetes mellitus with other specified complication (4) Hypokalemia due to excessive gastrointestinal loss of potassium SNOMED Code(s): 60694868 Code(s): E87.6 - HYPOKALEMIA Status: Resolved Priority: High Current Visit: Yes (5) Hypomagnesemia SNOMED Code(s): 789719906 Code(s): E83.42 - HYPOMAGNESEMIA Status: Resolved Priority: High Current Visit: Yes (6) Hypertension SNOMED Code(s): 62775157 Code(s): I10 - ESSENTIAL (PRIMARY) HYPERTENSION Status: Chronic Priority: Medium Current Visit: Yes Qualifiers: Hypertension type: unspecified Qualified Code(s): I10 - Essential (primary) hypertension - Problem List Review Problem List Initiated/Reviewed/Updated: Yes - My Orders Last 24 Hours: My Active Orders 12/04/20 08:12 Consult to Respiratory Therapy [Respiratory Care Assess and Treatment] [CONS] Routine 12/05/20 05:11 DD [D-DIMER QUANTITATIVE] [COAG] Q48H 12/07/20 05:11 DD [D-DIMER QUANTITATIVE] [COAG] Q48H 12/09/20 05:11 DD [D-DIMER QUANTITATIVE] [COAG] Q48H - Plan Plan:: 59-year-old diabetic male, unvaccinated against COVID-19, presents with Covid- like symptoms for 8 days. Covid pneumonia with hypoxemia On admission * On 2 L nasal cannula from the ER * Symptoms of 8 days with worsening shortness of breath and saturations in the 80s at home * Several days of diarrhea * Morbid obesity, BMI 52, putting had much higher risk for complications * CRP 7.9, albumin 2.9, WBC 6.3, D-dimer 0.46 * Chest x-ray suspicious for moderately severe COVID pneumonia. Mild cardiomegaly * Given dexamethasone in the emergency department 12/03/2020 Oxygenation has improved and he is down to 1 L nasal cannula. Unfortunately, h is C-reactive protein has increased overnight to 9.1 and his albumin dropped to 2.7. He continues on remdesivir and dexamethasone. 12/04/2020 Remains on 1 L but states he is feeling better. WBC has increased to 9.26, likely steroid related. CRP has decreased to 3.7. Continues on remdesivir and dexamethasone. Type 2 diabetes mellitus On admission * Unknown hemoglobin A1c at this time * Presenting blood sugar 223 * Home meds include pioglitazone and glimepiride 12/03/2020 Hemoglobin A1c returned at 9.9 showing poor control prior to admission. Blood sugars are in upper 200s on average. He is currently on only a sliding scale. Home medicines were held since they are pioglitazone and glimepiride 12/04/2020 Sugars remain elevated between 266 and 346. He is on 20 units of Lantus daily and we will add 10 units Lantus at bedtime as he has been requiring between 6 and 13 units of insulin over the past 24 hours. We will continue to hold home p.o. medications. Continue 4 times daily before meals and bedtime glucose checks. Continue sliding scale insulin and increase scheduled TID Humalog from 7 units to 10 units Hypokalemia/hypomagnesemia On admission * Initial potassium 3.2 * Magnesium 1.7 * Likely secondary to GI loss 12/03/2020 Magnesium and potassium are both normal. No supplementation needed 12/04/2020 Electrolytes remain normal. We will continue to monitor Hypertension On admission * Blood pressures well controlled on home medications of losartan and hydrochlorothiazide 12/03/2020 Blood pressure is well controlled on just losartan at this time. 12/04/2020 Continues to have stable blood pressures. Plan * Admit to medical floor in strict isolation * FiO2 to keep SPO2 between 88 and 94% * RT, I-S, prone positioning and routine COVID-19 pneumonia respiratory care * Albuterol and duo nebs as needed as part of standard Covid treatment * Day 3 of 5 remdesivir * Day 3 of 10 dexamethasone * Continue Lantus to 20 units daily and add 10 units at bedtime. * Had 7 units lispro prior to each meal -> increase to 10 units TIDAC * Continue sliding scale insulin medium dose * Follow CBC, CMP, mag, Phos, CRP, and occasional D-dimer * Continue losartan 100 mg daily, but hold hydrochlorothiazide at this time and monitor blood pressure * Lovenox 40 mg subcut daily for VTE prophylaxis. * CODE STATUS full code
[2020-12-04] MEDS: Losartan 100 MG Tab PO SCH (11:29)
[2020-12-04] MEDS ORDERED: Insulin Lispro 100 UNIT/ML 10 ML Vial SUBCUT SCH (17:00)
[2020-12-04] MEDS: REMDESIVIR 100 MG in Sodium Chloride 0.9% 100 ML IV SCH (17:25)
[2020-12-04 17:43] VITALS: BP 106/48; PULSE 88
[2020-12-04] MEDS ORDERED: Insulin Glarg,Human.Rec.Analog 100 Unit/ML SUBCUT SCH (21:00)
--- NOTE | 2020-12-05 08:57 | PCM.DCSUM1 ---
Discharge Summary - Hospital Course HPI Initial Comments: 59-year-old diabetic male, unvaccinated against COVID-19, presents to the emergency department with increasing shortness of breath and cough. Patient states that approximately 8 days prior he developed feeling short of breath and fatigue. Patient was diagnosed with COVID-19 3 days prior to admission at the walk-in clinic. Patient states that his shortness of breath has worsened and his home oxygen saturations were in the 80s. Cough has actually improved from earlier. He does state he has had a change in taste, increased fatigue, decreased appetite, and some episodes of diarrhea which he contributes to cough medicine. Denies any fever or chills. In the emergent department patient was placed on 2 L nasal cannula with saturations increased to the mid to upper 90s. Diagnosis: Stroke: No - Discharge Data Discharge Date: 12/04/20 (Admission date: 12/02/2020) Discharge Disposition: Home, Self-Care 01 Condition: Good - Referral to Home Health Primary Care Physician: Kenneth Crews MD - Discharge Diagnosis/Problem(s) (1) Hypoxemia SNOMED Code(s): 376236460 ICD Code: R09.02 - HYPOXEMIA Status: Acute Priority: High (2) Pneumonia due to COVID-19 virus SNOMED Code(s): 545814585913169712 ICD Code: U07.1 - COVID-19; J12.82 - PNEUMONIA DUE TO CORONAVIRUS DISEASE 2018 Status: Acute Priority: High (3) Type 2 diabetes mellitus SNOMED Code(s): 40878712 ICD Code: E11.9 - TYPE 2 DIABETES MELLITUS WITHOUT COMPLICATIONS Status: Chronic Priority: Medium Qualifiers: Diabetes mellitus longterm insulin use: without longterm use Diabetes mellitus complication status: with other specified complication Qualified Code(s): E11.69 - Type 2 diabetes mellitus with other specified complication (4) Hypokalemia due to excessive gastrointestinal loss of potassium SNOMED Code(s): 81969046 ICD Code: E87.6 - HYPOKALEMIA Status: Resolved Priority: High (5) Hypomagnesemia SNOMED Code(s): 108396883 ICD Code: E83.42 - HYPOMAGNESEMIA Status: Resolved Priority: High (6) Hypertension SNOMED Code(s): 52901979 ICD Code: I10 - ESSENTIAL (PRIMARY) HYPERTENSION Status: Chronic Priority: Medium Qualifiers: Hypertension type: unspecified Qualified Code(s): I10 - Essential (primary) hypertension (7) Obesity SNOMED Code(s): 288942282, 932031143 ICD Code: E66.9 - OBESITY, UNSPECIFIED Status: Chronic Priority: Medium Qualifiers: Obesity type: due to excess calories Obesity classification: adult class 3 (BMI >= 40) Serious obesity comorbidity presence: with serious comorbidity Body mass index: BMI 50.0-59.9 Qualified Code(s): E66.01 - Morbid (severe) o besity due to excess calories; Z68.43 - Body mass index [BMI] 50.0-59.9, adult - Patient Summary/Data Consults: Consultations 12/04/20 08:12 Consult to Respiratory Therapy [Respiratory Care Assess and Treatment] [CONS] Routine Labs Pending at D/C: None Recommended Follow-up Testing/Procedures: With primary care provider within 5 to 7 days of discharge, sooner if needed. * Patient sent home on oxygen * Patient sent home on increased long and short acting insulin due to steroid use. Please review blood glucose journal * Recommend repeat CBC, CMP, and magnesium. Consider repeat chest x-ray. * Discharged on 3 more days of 6 mg dexamethasone p.o. Hospital Course: This is a 59-year-old morbidly obese male with a BMI of 51.8 who presented to our ED on 12/02/2020 with increased shortness of breath and COVID-19 pneumonia symptoms. He reports symptoms began 8 days prior and he tested positive for COVID-19 on 11/29/2020. He reported fatigue, shortness of breath with activity, decreased appetite, nausea and diarrhea. He is not a smoker but does have a history of hypertension, HLD, and type 2 diabetes. He noted O2 saturations of 80% at home. Chest x-rays obtained showing scattered areas of infiltrate consistent with COVID-19 pneumonia. Potassium and magnesium were noted to be low. He was admitted to the floor for further management. He was started on dexamethasone and remdesivir. He was instructed to prone and given an incentive spirometer. Potassium and magnesium were supplemented with good response. Blood sugars were noted to be elevated, likely exacerbated by his steroid. P.o. medications were held and he was started on Lantus 20 units daily. 10 units at bedtime were also added after the patient was noted to have blood sugars which continued in the 2 to upper 300s. He was started on 3 times daily AC Humalog 7 units and this was increased to 10 units. He responded well to treatment but was requiring oxygen at discharge. Given his continued stability after much discussion decision was made to discharge patient home on home oxygen with p.o. dexamethasone for 3 more days. He was instructed to discontinue his pioglitazone and was discharged on 20 units daily Lantus, 10 units nighttime Lantus, and 10 units Humalog 3 times daily AC. He was instructed to take his blood sugars 4 times a day and adjust his insulin based on his blood sugars. 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 He was instructed to follow-up with his primary care provider within 5 to 7 days of discharge, sooner if needed. Recommend repeat CBC, CMP, and magnesium in follow-up. Consider repeat chest x-ray. Patient structured to contact primary care provider return to the emergency room should symptoms return or worsen. Discharged home on 1 L of oxygen as noted. - Patient Instructions Diet: Diabetic Diet Activity: As Tolerated Driving: Do Not Drive Showering/Bathing: May Shower Other/Special Instructions: You are being sent home on home oxygen 1 L/min via nasal cannula to keep your oxygen saturations in the low 90s. I am going to ask you to stop your pioglitazone because I started you on insulin and the combination can increase your risk for heart failure. You are also being placed on dexamethasone which can increase your blood sugars, therefore you need to check your blood sugars at least 4 times a day. Adjust your insulin based on your blood sugars. May should be able to help you with that adjustment. If you have any worsening shortness of breath or oxygenation he will need to return to the emergency department. - Discharge Plan *PRESCRIPTION DRUG MONITORING PROGRAM REVIEWED*: No *COPY OF PRESCRIPTION DRUG MONITORING REPORT IN PATIENT NEVAEH: No Prescriptions/Med Rec: dexAMETHasone [Dexamethasone] 6 mg PO DAILY #3 tablet Insulin Detemir [Levemir Flextouch] 10 unit SQ BEDTIME #1 insuln.pen Insulin Detemir [Levemir Flextouch] 20 unit SQ DAILY #1 insuln.pen Insulin Aspart [NovoLOG] 10 unit SQ TIDAC #1 pen Insulin Aspart [Novolog Flexpen] 10 unit SQ TIDAC #1 insuln.pen Home Medications: Home Meds Aspirin 81 mg PO DAILY 04/14/17 [History] Fish Oil/[place]-3 Fatty Acids [Fish Oil 1,000 MG] 1 each PO DAILY 04/14/17 [History] Flaxseed Oil [Flaxseed] 1,000 mg PO DAILY 04/14/17 [History] Losartan/Hydrochlorothiazide [Losartan-HCTZ 100-25 MG] 25 - 100 mg PO DAILY 04/14/17 [History] Omeprazole 20 mg PO DAILY 04/14/17 [History] Tamsulosin HCl 0.4 mg PO DAILY 04/14/17 [History] Ubidecarenone [Co Q-10] 400 mg PO DAILY 04/14/17 [History] Insulin Aspart [NovoLOG] 10 unit SQ TIDAC #1 pen 12/04/20 [Rx] Insulin Aspart [Novolog Flexpen] 10 unit SQ TIDAC #1 insuln.pen 12/04/20 [Rx] Insulin Detemir [Levemir Flextouch] 10 unit SQ BEDTIME #1 insuln.pen 12/04/20 [Rx] Insulin Detemir [Levemir Flextouch] 20 unit SQ DAILY #1 insuln.pen 12/04/20 [Rx] dexAMETHasone [Dexamethasone] 6 mg PO DAILY #3 tablet 12/04/20 [Rx] Oxygen Therapy Mode: Nasal Cannula Oxygen Flow Rate (L/min): 1 Maintain SpO2% greater than: 90 Patient Handouts: COVID-19 Frequently Asked Questions, COVID-19, 10 Things You Can Do to Manage Your COVID-19 Symptoms at Home - CDC (09/08/2020), Sepsis, Self Care, Adult Forms: ED Department Discharge Referrals: Kenneth Crews MD [Primary Care Provider] - - Discharge Summary/Plan Comment DC Time >30 min.: No Total # of Minutes for Discharge Time: 25 - General Info Date of Service: 12/04/20 Admission Dx/Problem (Free Text: Admission Diagnosis/Problem Admission Diagnosis/Problem Hypoxia Functional Status: Reports: Pain Controlled, Tolerating Diet, Ambulating, Urinating, Incentive Spirometry. Denies: New Symptoms - Review of Systems General: Reports: No Symptoms. Denies: Fever, Weakness, Fatigue, Malaise, Chills HEENT: Reports: No Symptoms. Denies: Headaches, Sore Throat Pulmonary: Reports: Shortness of Breath, Cough. Denies: Pleuritic Chest Pain, Sputum, Wheezing Cardiovascular: Reports: No Symptoms, Dyspnea on Exertion. Denies: Chest Pain, Palpitations, Edema Gastrointestinal: Reports: No Symptoms. Denies: Abdominal Pain, Constipation, Diarrhea, Nausea, Vomiting Genitourinary: Reports: No Symptoms. Denies: Pain Musculoskeletal: Reports: No Symptoms Skin: Reports: No Symptoms. Denies: Cyanosis Neurological: Reports: No Symptoms. Denies: Confusion, Dizziness, Headache, Numbness, Pre-Existing Deficit, Seizure, Syncope, Tingling, Tremors, Difficulty Walking, Weakness, Change in Speech, Gait Disturbance Psychiatric: Reports: No Symptoms - Patient Data Vitals - Most Recent: Last Vital Signs Temp 97.9 F 12/04/20 17:11 Pulse 88 12/04/20 17:11 Resp 20 12/04/20 17:11 BP 106/48 L 12/04/20 17:11 Pulse Ox 92 L 12/04/20 06:05 Weight - Most Recent: 311 lb 6.4 oz I&O - Last 24 hours: Intake & Output 12/04/20 12/05/20 12/05/20 22:59 06:59 14:59 Intake Total 1300 Output Total 1125 Balance 175 Lab Results - Last 24 hrs: Laboratory Results - last 24 hr 12/04/20 12/04/20 12/04/20 Range/Units 11:01 17:03 20:53 POC Glucose 291 H 229 H 249 H (70-99) mg/dL Med Orders - Current: Current Medications Discontinued Medications Acetaminophen (Acetaminophen 325 Mg Tab) 650 mg PO Q4H PRN PRN Reason: Pain (Mild 1-3)/fever Albuterol (Albuterol 6.7 Gm Inhaler) 0 gm INH Q4H PRN PRN Reason: Shortness of Breath Albuterol/Ipratropium (Albuterol/Ipratropium 3.0-0.5 Mg/3 Ml Neb Soln) 3 ml NEB Q4HRRT PRN PRN Reason: Shortness of Breath Last Admin: 12/02/20 21:14 Dose: 3 ml Documented by: Aspirin (Aspirin 81 Mg Tab.Ec) 81 mg PO DAILY NERISSA Last Admin: 12/04/20 08:15 Dose: 81 mg Documented by: Dexamethasone (Dexamethasone 4 Mg Tab) 6 mg PO ONETIME ONE Stop: 12/02/20 14:31 Last Admin: 12/02/20 14:49 Dose: 6 mg Documented by: Dexamethasone (Dexamethasone 4 Mg Tab) 6 mg PO DAILY [facility] Stop: 12/12/20 09:01 Last Admin: 12/04/20 08:15 Dose: 6 mg Documented by: Enoxaparin Sodium (Enoxaparin 40 Mg/0.4 Ml Syringe) 40 mg SUBCUT DAILY [facility] Last Admin: 12/04/20 08:20 Dose: 40 mg Documented by: Remdesivir 200 mg/ Sodium (Chloride) 250 mls @ 250 mls/hr IV ONETIME ONE Stop: 12/02/20 18:59 Last Admin: 12/02/20 18:30 Dose: 250 mls/hr Documented by: Remdesivir 100 mg/ Sodium (Chloride) 100 mls @ 100 mls/hr IV Q24H NERISSA Stop: 12/06/20 18:59 Last Admin: 12/04/20 17:25 Dose: 100 mls/hr Documented by: Lidocaine HCl (Xylocaine-Mpf 1%) Confirm Administered Dose 8 mls @ as directed .ROUTE .STK-MED ONE Stop: 12/03/20 19:59 Ibuprofen (Ibuprofen 600 Mg Tab) 600 mg PO Q6H PRN PRN Reason: Pain (moderate 4-6) Insulin Glargine (Insulin Glarg,Human.Rec.Analog 100 Unit/Ml) 20 unit SUBCUT DAILY [facility] Last Admin: 12/04/20 08:21 Dose: 20 units Documented by: Insulin Glargine (Insulin Glarg,Human.Rec.Analog 100 Unit/Ml) 10 unit SUBCUT BEDTIME [facility] Last Admin: 12/04/20 21:49 Dose: 10 unit Documented by: Insulin Human Lispro (Insulin Lispro 100 Unit/Ml 10 Ml Vial) 0 unit SUBCUT QI DACANDBED [facility]; Protocol Last Admin: 12/04/20 21:49 Dose: 4 units Documented by: Insulin Human Lispro (Insulin Lispro 100 Unit/Ml 10 Ml Vial) 7 unit SUBCUT TIDAC [facility] Last Admin: 12/04/20 11:35 Dose: 7 units Documented by: Insulin Human Lispro (Insulin Lispro 100 Unit/Ml 10 Ml Vial) 10 unit SUBCUT TIDAC [facility] Last Admin: 12/04/20 17:25 Dose: 10 units Documented by: Loperamide HCl (Loperamide 2 Mg Cap) 4 mg PO Q6H PRN PRN Reason: Diarrhea Last Admin: 12/03/20 13:35 Dose: 4 mg Documented by: Losartan Potassium (Losartan 100 Mg Tab) 100 mg PO DAILY [facility] Last Admin: 12/04/20 11:29 Dose: 100 mg Documented by: Magnesium Oxide (Magnesium Oxide 400 Mg Tab) 400 mg PO ONETIME ONE Stop: 12/02/20 14:18 Last Admin: 12/02/20 14:49 Dose: 400 mg Documented by: Magnesium Oxide (Magnesium Oxide 400 Mg Tab) 400 mg PO BID [facility] Last Admin: 12/04/20 21:48 Dose: 400 mg Documented by: Ondansetron HCl (Ondansetron 4 Mg/2 Ml Sdv) 4 mg IV Q6H PRN PRN Reason: Nausea/Vomiting Pantoprazole Sodium (Pantoprazole 40 Mg Tab.Cr) 40 mg PO ACBREAKFAST [facility] Last Admin: 12/04/20 05:58 Dose: 40 mg Documented by: Potassium Chloride (Potassium Chloride 20 Meq Tab.Er) 40 meq PO ONETIME ONE Stop: 12/02/20 14:17 Last Admin: 12/02/20 14:48 Dose: 40 meq Documented by: Tamsulosin HCl (Tamsulosin 0.4 Mg Cap.Er) 0.4 mg PO DAILY [facility] Last Admin: 12/04/20 08:15 Dose: 0.4 mg Documented by: Temazepam (Temazepam 15 Mg Cap) 15 mg PO BEDTIME PRN PRN Reason: Sleep - Exam Quality Assessment: Reports: Supplemental Oxygen (1L), DVT Prophylaxis General: Reports: Alert, Oriented, Cooperative, No Acute Distress HEENT: Reports: Pupils Equal, Pupils Reactive, Mucous Membr. Moist/[place] Neck: Reports: Supple, Trachea Midline Lungs: Reports: Normal Respiratory Effort, Decreased Breath Sounds, Crackles. Denies: Rhonchi, Wheezing Cardiovascular: Reports: Regular Rate, Regular Rhythm GI/Abdominal Exam: Normal Bowel Sounds, Soft, Non-Tender, No Distention (Male) Exam: Deferred Rectal (Males) Exam: Deferred Back Exam: Reports: Normal Inspection, Full Range of Motion Extremities: Normal Inspection, Normal Range of Motion, Non-Tender, No Pedal Edema, Normal Capillary Refill Skin: Reports: Warm, Dry, Intact Neurological: Reports: No New Focal Deficit Psy/Mental Status: Reports: Alert, Normal Affect, Normal Mood
== END 2020-12-04 22:45 | disposition home or self-care (01) | DRG 137 ==
LOC: JD.ED 12:10 → JD.MS 15:28
PROVIDERS: ADMIT Family Medicine; ATTEND Family Medicine
PROC: 8E0ZXY6 Isolation (ICD-10-PCS; principal; 2020-12-02)
PROC: 3E0333Z Introduction of Anti-inflammatory into Peripheral Vein, Percutaneous Approach (ICD-10-PCS; 2020-12-02)
PROC: XW033E5 Introduction of Remdesivir Anti-infective into Peripheral Vein, Percutaneous Approach, New Technology Group 5 (ICD-10-PCS; 2020-12-02)
DX: U07.1 COVID-19 (principal); J12.82 Pneumonia due to coronavirus disease 2019; R09.02 Hypoxemia; E11.69 Type 2 diabetes mellitus with other specified complication; E87.6 Hypokalemia; E83.42 Hypomagnesemia; I10 Essential (primary) hypertension; E66.01 Morbid (severe) obesity due to excess calories; Z68.43 Body mass index [BMI] 50.0-59.9, adult; H54.7 Unspecified visual loss; E78.5 Hyperlipidemia, unspecified; K21.9 Gastro-esophageal reflux disease without esophagitis; Z97.3 Presence of spectacles and contact lenses
CPT/HCPCS: 36410; 36415; 71045; 71045-26; 80053; 82947; 83036; 83735; 84100; 85025; 85379; 86140; 93005; 94640; 94762; 99285-25; A9270-GY; J1650; J1815-GY; J7050; J7620-GY; J8540

== ENCOUNTER 2021-01-16 00:54 | Emergency (ER) | payer BC ==
[2021-01-16 01:41] VITALS: BP 143/117; PULSE 120
[2021-01-16] MEDS ORDERED: Lactated Ringers 1,000 ML IV ONE ×2 (03:01→03:54)
[2021-01-16] MEDS ORDERED: Morphine 4 MG/ML Syringe IVPUSH ONE (03:02)
--- NOTE | 2021-01-16 03:43 | EDM.PDOC ---
ED HPI GENERAL MEDICAL PROBLEM - General Chief Complaint: Chest Pain Stated Complaint: CHEST PAIN/BACK PAIN Time Seen by Provider: 01/16/21 02:00 Source of Information: Reports: Patient History Limitations: Reports: No Limitations - History of Present Illness INITIAL COMMENTS - FREE TEXT/NARRATIVE: Patient is a 60-year-old male with a history of morbid obesity presenting with a chief complaint of abdominal pain. Patient reports abdominal pain has been ongoing for several days now. He states he has pain in the middle of his abdomen which radiates up into the chest. Nothing seems abated. Better or worse. Pain is sharp in nature. He also started having diffuse back pain today. States is extremely uncomfortable whenever he tries to sit or move. He otherwise denies fever, chills, vomiting, diarrhea. Patient has no constipation or obstipation. Patient does report some intermittent shortness of breath not seemingly related to pain. Patient has history of recent COVID-19 infection. Patient has significant decrease in appetite. He states he which could make himself vomit because he feels like that could help her symptoms. Patient states he has been drinking a little bit of fluids. Mid-Anterior Chest Pain Score (Numeric/FACES): 5 - Related Data Allergies Allergy/AdvReac Type Severity Reaction Status Date / Time No Known Allergies Allergy Verified 01/16/21 01:41 Home Meds: Home Meds Aspirin 81 mg PO DAILY 04/14/17 [History] Fish Oil/[place]-3 Fatty Acids [Fish Oil 1,000 MG] 1 each PO DAILY 04/14/17 [History] Flaxseed Oil [Flaxseed] 1,000 mg PO DAILY 04/14/17 [History] Losartan/Hydrochlorothiazide [Losartan-HCTZ 100-25 MG] 25 - 100 mg PO DAILY 0 04/14/17 [History] Omeprazole 20 mg PO DAILY 04/14/17 [History] Tamsulosin HCl 0.4 mg PO DAILY 04/14/17 [History] Ubidecarenone [Co Q-10] 400 mg PO DAILY 04/14/17 [History] Insulin Aspart [NovoLOG] 10 unit SQ TIDAC #1 pen 12/04/20 [Rx] Insulin Aspart [Novolog Flexpen] 10 unit SQ TIDAC #1 insuln.pen 12/04/20 [Rx] Insulin Detemir [Levemir Flextouch] 10 unit SQ BEDTIME #1 insuln.pen 12/04/20 [Rx] Insulin Detemir [Levemir Flextouch] 20 unit SQ DAILY #1 insuln.pen 12/04/20 [Rx] dexAMETHasone [Dexamethasone] 6 mg PO DAILY #3 tablet 12/04/20 [Rx] Ondansetron [Zofran ODT] 4 mg PO Q6H PRN #12 tab.dis 01/16/21 [Rx] Pantoprazole [ProTONIX] 40 mg PO DAILY #12 tab.cr 01/16/21 [Rx] Past Medical History HEENT History: Reports: Impaired Vision Other HEENT History: wears reading glasses. Cardiovascular History: Reports: High Cholesterol, Hypertension Gastrointestinal History: Reports: GERD Other Gastrointestinal History: Diarrhea recently Genitourinary History: Reports: Retention, Urinary Endocrine/Metabolic History: Reports: Diabetes, Type II, Obesity/BMI 30+ - Infectious Disease History Infectious Disease History: Reports: Chicken Pox, Novel Coronavirus, SARS Social & Family History - Family History Oncologic: Reports: Brain, Pancreatic, Other (See Below) Other Oncologic Family History: Eye - Tobacco Use Tobacco Use Status *Q: Never Tobacco User Second Hand Smoke Exposure: No - Caffeine Use Caffeine Use: Reports: Coffee Other Caffeine Use: occassional - Recreational Drug Use Recreational Drug Use: No ED ROS GENERAL - Review of Systems Review Of Systems: See Below Free Text/Narrative/Comment: In addition to that documented in the HPI above, the additional ROS was obtained: Constitutional: Denies fevers or chills Eyes: Denies vision changes ENMT: Denies sore throat CV: Denies chest pain Resp: Denies SOB GI: Denies vomiting or diarrhea : Denies painful urination MSK: Denies recent trauma Skin: Denies new rashes Neuro: Denies new numbness or tingling or weakness Endocrine: Denies unexpected weight loss Heme: Denies bleeding disorders ED EXAM, GI/ABD - Physical Exam Exam: See Below Text/Narrative:: I have reviewed the triage vital signs Const: Well nourished, well developed, appears stated age Eyes: Pupils Equal and reactive to light bilaterally, no conjunctival injection HENT: No signs of trauma or swelling, Neck supple without meningismus CV: Echocardiac with regular rhythm, Warm, well-perfused extremities RESP: Unlabored respiratory effort GI: soft, non-tender, non-distended, no masses MSK: No gross deformities appreciated Skin: Warm, dry. No rashes Neuro: Alert, small engine trainer II-XII grossly intact. Sensation and motor function of extremities grossly intact. Psych: Appropriate mood and affect. #1 Interpretation EKG Date: 01/16/21 Time: 01:07 Rhythm: NSR Rate (Beats/Min): 115 [place]: Normal P-Wave: Present QRS: RBBB ST-T: Normal QT: Normal EKG Interpretation Comments: Left posterior fascicular block. Abnormal EKG. Course - Vital Signs Last Recorded V/S: Last Vital Signs Temp 35.7 C L 01/16/21 01:35 Pulse 120 H 01/16/21 01:35 Resp 22 H 01/16/21 01:35 BP 143/117 H 01/16/21 01:35 Pulse Ox 94 L 01/16/21 01:35 - Orders/Labs/Meds Orders: Active Orders 24 hr Category Date Time Status Abdomen Pelvis w Cont [CT] Stat Exams 01/16/21 02:35 Taken Labs: Laboratory Tests 01/16/21 01/16/21 01/16/21 Range/Units 01:30 02:02 02:02 WBC 9.96 H (4.23-9.07) K/mm3 RBC 5.34 (4.63-6.08) M/mm3 Hgb 15.1 D (13.7-17.5) gm/dl Hct 45.7 (40.1-51.0) % MCV 85.6 (79.0-92.2) fl MCH 28.3 (25.7-32.2) pg MCHC 33.0 (32.2-35.5) g/dl RDW Std Deviation 41.9 (35.1-43.9) fL Plt Count 279 (163-337) K/mm3 MPV 10.4 (9.4-12.3) fl Neut % (Auto) 66.3 (34.0-67.9) % Lymph % (Auto) 18.7 L (21.8-53.1) % [place] % (Auto) 13.5 H (5.3-12.2) % Eos % (Auto) 1.2 (0.8-7.0) Baso % (Auto) 0.1 (0.1-1.2) % Neut # (Auto) 6.61 H (1.78-5.38) K/mm3 Lymph # (Auto) 1.86 (1.32-3.57) K/mm3 [place] # (Auto) 1.34 H (0.30-0.82) K/mm3 Eos # (Auto) 0.12 (0.04-0.54) K/mm3 Baso # (Auto) 0.01 (0.01-0.08) K/mm3 PT 11.4 (9.7-12.0) SECONDS INR 1.03 Sodium (136-145) mEq/L Potassium (3.5-5.1) mEq/L Chloride (98-107) mEq/L Carbon Dioxide (21-32) mEq/L Anion Gap (5-15) BUN (7-18) mg/dL Creatinine (0.7-1.3) mg/dL Est Cr Clr Drug Dosing mL/min Estimated GFR (MDRD) (>60) mL/min BUN/Creatinine Ratio (14-18) Glucose (70-99) mg/dL Calcium (8.5-10.1) mg/dL Total Bilirubin (0.2-1.0) mg/dL AST (15-37) U/L ALT (16-63) U/L Alkaline Phosphatase (46-116) U/L CK-MB (CK-2) 1.3 (0-3.6) ng/ml Troponin I < 0.017 (0.00-0.056) ng/mL Total Protein (6.4-8.2) g/dl Albumin (3.4-5.0) g/dl Globulin gm/dL Albumin/Globulin Ratio (1-2) Lipase (73-393) U/L 01/16/21 Range/Units 02:02 WBC (4.23-9.07) K/mm3 RBC (4.63-6.08) M/mm3 Hgb (13.7-17.5) gm/dl Hct (40.1-51.0) % MCV (79.0-92.2) fl MCH (25.7-32.2) pg MCHC (32.2-35.5) g/dl RDW Std Deviation (35.1-43.9) fL Plt Count (163-337) K/mm3 MPV (9.4-12.3) fl Neut % (Auto) (34.0-67.9) % Lymph % (Auto) (21.8-53.1) % [place] % (Auto) (5.3-12.2) % Eos % (Auto) (0.8-7.0) Baso % (Auto) (0.1-1.2) % Neut # (Auto) (1.78-5.38) K/mm3 Lymph # (Auto) (1.32-3.57) K/mm3 [place] # (Auto) (0.30-0.82) K/mm3 Eos # (Auto) (0.04-0.54) K/mm3 Baso # (Auto) (0.01-0.08) K/mm3 PT (9.7-12.0) SECONDS INR Sodium 134 L (136-145) mEq/L Potassium 3.2 L (3.5-5.1) mEq/L Chloride 95 L (98-107) mEq/L Carbon Dioxide 27 (21-32) mEq/L Anion Gap 15.2 H (5-15) BUN 33 H (7-18) mg/dL Creatinine 2.3 H D (0.7-1.3) mg/dL Est Cr Clr Drug Dosing 29.71 mL/min Estimated GFR (MDRD) 29 (>60) mL/min BUN/Creatinine Ratio 14.3 (14-18) Glucose 221 H (70-99) mg/dL Calcium 9.6 (8.5-10.1) mg/dL Total Bilirubin 1.9 H (0.2-1.0) mg/dL AST 23 (15-37) U/L ALT 40 (16-63) U/L Alkaline Phosphatase 53 (46-116) U/L CK-MB (CK-2) (0-3.6) ng/ml Troponin I (0.00-0.056) ng/mL Total Protein 7.7 (6.4-8.2) g/dl Albumin 3.7 (3.4-5.0) g/dl Globulin 4.0 gm/dL Albumin/Globulin Ratio 0.9 L (1-2) Lipase 139 (73-393) U/L Meds: Medications Discontinued Medications Generic Name Dose Route Start Last Admin Trade Name Freq PRN Reason Stop Dose Admin Lactated Ringer's 1,000 mls @ 1,000 mls/hr 01/16/21 03:01 01/16/21 03:37 Ringers, Lactated IV 01/16/21 04:00 1,000 mls/hr .BOLUS ONE Administration Lactated Ringer's 1,000 mls @ 1,000 mls/hr 01/16/21 03:54 01/16/21 04:50 Ringers, Lactated IV 01/16/21 04:53 1,000 mls/hr .BOLUS ONE Administration Morphine Sulfate 6 mg 01/16/21 03:02 01/16/21 03:39 Morphine 4 Mg/Ml Syringe IVPUSH 01/16/21 03:03 6 mg ONETIME ONE Administration Departure - Departure Time of Disposition: 06:23 Disposition: Home, Self-Care 01 Clinical Impression: Abdominal pain - Discharge Information Prescriptions: Pantoprazole [ProTONIX] 40 mg PO DAILY #12 tab.cr Ondansetron [Zofran ODT] 4 mg PO Q6H PRN #12 tab.dis PRN Reason: Nausea Instructions: Nonspecific Chest Pain, Adult, [id number] Referrals: Kenneth Crews MD [Primary Care Provider] - Forms: ED Department Discharge Sepsis Event Note (ED) - Evaluation Sepsis Screening Result: No Definite Risk - Focused Exam Vital Signs: Vital Signs Temp Pulse Resp BP Pulse Ox 01/16/21 01:35 35.7 C L 120 H 22 H 143/117 H 94 L - My Orders Last 24 Hours: My Active Orders 01/16/21 02:35 Abdomen Pelvis w Cont [CT] Stat - Assessment/Plan Last 24 Hours: My Active Orders 01/16/21 02:35 Abdomen Pelvis w Cont [CT] Stat Assessment:: Patient is 60-year-old male presenting to the emergency room with complaint of abdominal pain. Patient had unremarkable ER course. Patient initially tachycardic in the 120s but this did improve significantly in the low 100s after being administered IV fluids. Otherwise, his vital signs remained stable. Differential diagnosis considered for this patient include PE, cholecystitis, CO. Laboratory studies performed with findings of acute kidney injury. Total bilirubin slightly elevated but normal LFTs and lipase. CT imaging performed only findings consistent with possible partial small bowel obstruction versus ileus and also findings consistent with previous Covid pneumonia. I did discuss these findings with on-call surgeon Dr. Lr and he does not believe this is a partial small bowel obstruction rather ileus. We discussed doing a liquid diet for the next 24 to 48 hours and slowly advancing as tolerated. Patient is agreement with this plan as he feels better since being in the emergency room. Will be discharged with outpatient follow-up. I did recommend repeat blood work in the next 1 week to check kidney function again. He is comfortable with this plan.
--- NOTE | 2021-01-16 06:08 | CR ---
Chest: Frontal view of the chest was obtained. Comparison: Prior chest x-ray of 12/02/20. Patchy increased density seen on prior chest x-ray shows improvement. Finding is not completely resolve given subsequent chest CT. Heart size is slightly enlarged. Upper mediastinum is normal. Bony structures are unremarkable. Impression: 1. Improved appearance of both lungs from prior chest x-ray but given appearance of recent chest CT, findings have not yet completely resolved. 2. Heart size is slightly enlarged. Diagnostic code #3
--- NOTE | 2021-01-16 06:15 | CT ---
CT chest Technique: Multiple axial sections through the chest were obtained. Intravenous contrast was utilized. Study has been performed as a pulmonary angiogram protocol. Comparison: Prior chest x-ray performed earlier on the current day (1:50 AM) as well as prior chest CT study of 03/11/18. Findings: Pulmonary arteries are fairly well opacified. No discrete filling defects are seen to indicate pulmonary embolism. Thoracic aorta shows no aneurysm. Atherosclerotic calcification is felt to be present within the coronary arteries. No pericardial thickening is seen. Mediastinum shows no adenopathy. No axillary adenopathy is seen. Lung window settings were reviewed. Hazy peripheral densities are seen within both lungs. Findings are suspicious for COVID pneumonia given the multifocal nature of these findings. Bone window settings were reviewed which show two healed left-sided rib fractures. Impression: 1. No findings of pulmonary embolism. 2. Patchy increased density is noted within both sides of the chest which most likely represents diffuse COVID pneumonia. 3. Other incidental findings as noted above. 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
--- NOTE | 2021-01-16 06:23 | CT ---
CT abdomen and pelvis Technique: Multiple axial sections were obtained from above the dome of the diaphragm inferiorly through the pubic symphysis. Intravenous contrast was utilized. Delayed images were also obtained. Reconstructed coronal and sagittal images were obtained. Comparison: Prior CT abdomen and pelvis study of 03/11/18. Findings: Liver shows no focal parenchymal abnormality. Gallbladder contains no calcified gallstones. Spleen size is normal. Adrenal glands show no nodule. Pancreas shows no discrete abnormality. Kidneys show symmetric contrast enhancement. Delayed images show contrast excretion from both kidneys into nondilated ureters and the bladder. Abdominal aorta shows atherosclerotic calcification which continues into the iliac vessels. No aneurysm is seen. No retroperitoneal adenopathy is noted. No pelvic mass or adenopathy is seen. Appendix is seen which is normal in size. Diverticuli are noted throughout the colon. No definite inflammatory change is seen to indicate diverticulitis. Mildly dilated small bowel loops are seen. Distal small bowel within the terminal ileum shows no dilatation. Bone window settings were reviewed which show mild degenerative change within the spine. No definite acute osseous finding is seen. Impression: 1. Diffuse diverticulosis. No definite diverticulitis is seen. 2. Slightly prominent small bowel likely representing small bowel ileus or less likely partial small bowel obstruction. Diagnostic code #3 I agree with preliminary report from [facility], finalized on 01/16/21, 6:49 AM STOCK REPAIRER
== END 2021-01-16 06:30 | disposition home or self-care (01) ==
LOC: JD.ED 00:54
DX: R10.9 Unspecified abdominal pain (principal); K21.9 Gastro-esophageal reflux disease without esophagitis; I10 Essential (primary) hypertension; E66.9 Obesity, unspecified; Z68.43 Body mass index [BMI] 50.0-59.9, adult; E11.9 Type 2 diabetes mellitus without complications; Z79.82 Long term (current) use of aspirin; Z79.4 Long term (current) use of insulin; Z79.899 Other long term (current) drug therapy
CPT/HCPCS: 36415; 71045; 71045-26; 71275; 71275-26; 74177; 74177-26; 80053; 82553; 83690; 84484; 85025; 85610; 93005; 93010; 96374; 99284-25; 99285; J2270; J7120

== ENCOUNTER 2024-03-08 12:43 | Emergency (ER) | payer OTHER, BC ==
[2024-03-08 13:27] VITALS: BP 119/68; PULSE 117
[2024-03-08] MEDS: Lidocaine 1% 10 ML MDV INJECT ONE (14:31)
[2024-03-08] MEDS: Acetaminophen 325 MG Tab PO ONE (14:47)
== END 2024-03-08 15:30 | disposition home or self-care (01) ==
LOC: JD.ED 12:43
DX: S92.422A Displaced fracture of distal phalanx of left great toe, initial encounter for closed fracture (principal); S93.105A Unspecified dislocation of left toe(s), initial encounter; I10 Essential (primary) hypertension; K21.9 Gastro-esophageal reflux disease without esophagitis; E11.9 Type 2 diabetes mellitus without complications; E66.9 Obesity, unspecified; Z68.42 Body mass index [BMI] 45.0-49.9, adult; Z86.16 Personal history of COVID-19; Z79.4 Long term (current) use of insulin; Z79.82 Long term (current) use of aspirin; Z79.899 Other long term (current) drug therapy; W11.XXXA Fall on and from ladder, initial encounter
CPT/HCPCS: 28495; 73610-26-LT; 73610-LT; 73620-26-LT; 73620-LT; 73630-26-LT; 73630-LT; 99283-25; A9270-GY; J3490